=== PATIENT | female | born 1960 | race Caucasian/White ===

== ENCOUNTER → 2016-11-02 | Outpatient (CLI) | payer OTHER ==
[~2016-11-02] MED LIST: ERGO400C PO
--- NOTE | 2016-11-03 18:52 | Diagnostic Imaging Report ---
Bilateral screening mammogram The current study was also evaluated with a Computer Aided Detection (CAD) system. Indication: Screening. No current complaints stated on the questionnaire. COMPARISON: 08/12/15. FINDINGS: The breasts are composed of heterogeneously dense parenchyma which may decrease mammographic sensitivity. There is no mass, architectural distortion or suspicious cluster of calcification. Allowing for technique and positional differences, no suspicious change is seen. IMPRESSION: No significant change. ACR BI-RADS Category 2: Benign findings. Result letter will be mailed to the patient. Note: At least 10% of breast cancer is not imaged by mammography. Dictated by: Dictated on workstation # [id number]
== END ==
LOC: RAD 13:48
PROVIDERS: ATTEND Family Medicine
DX: Z12.31 Encounter for screening mammogram for malignant neoplasm of breast (principal)
CPT/HCPCS: 77067

== ENCOUNTER → 2019-01-11 | Outpatient (CLI) | payer OTHER ==
--- NOTE | 2019-01-14 08:30 | Diagnostic Imaging Report ---
INDICATION: Screening. TECHNIQUE: The current study was also evaluated with a Computer Aided Detection (CAD) system. 3D Tomographic imaging was also performed. COMPARISON: 01/10/2018, 11/02/2016, and 08/12/2015. FINDINGS: There are scattered fibroglandular densities bilaterally. There is no dominant mass, spiculated lesion, or suspicious calcifications identified. The skin, nipples, and axillae are unremarkable. IMPRESSION: Negative. ACR BI-RADS Category 1: Negative. Result letter will be mailed to the patient. Note: At least 10% of breast cancer is not imaged by mammography. Dictated by: Dictated on workstation # [id number]
== END ==
LOC: RAD 14:11
PROVIDERS: ATTEND Nurse Practitioner Family
DX: Z12.31 Encounter for screening mammogram for malignant neoplasm of breast (principal)
CPT/HCPCS: 77067

== ENCOUNTER → 2020-01-20 | Outpatient (CLI) | payer OTHER ==
--- NOTE | 2020-01-20 11:44 | Diagnostic Imaging Report ---
INDICATION: Routine screening. COMPARISON: 01/11/2019. TECHNIQUE: 2D and 3D bilateral screening mammography was performed with CAD. FINDINGS: Both breasts remain heterogeneously dense, limiting the sensitivity of mammography. The parenchymal pattern is stable. No mass or malignant appearing microcalcifications are seen. The axillae are unremarkable. IMPRESSION: No mammographic features suspicious for malignancy are identified. ACR BI-RADS Category 1: Negative. Result letter will be mailed to the patient. Note: At least 10% of breast cancer is not imaged by mammography. Dictated by: Dictated on workstation # [id number]
== END ==
LOC: RAD 07:45
PROVIDERS: ATTEND Nurse Practitioner Family
DX: Z12.31 Encounter for screening mammogram for malignant neoplasm of breast (principal)
CPT/HCPCS: 77063; 77067

== ENCOUNTER 2020-02-20 05:41 | Outpatient (RCR) | payer OTHER ==
[~2020-02-20] VITALS: Ht 167 cm; Wt 81.8 kg
[2020-02-20] MEDS ORDERED: CHOL10002 PO (12:55)
[2020-02-20] MEDS ORDERED: ALPH1TAB8 PO (12:55)
[2020-02-20] MEDS ORDERED: VIT1CAPS44 PO (12:55)
== END 2020-02-20 12:58 | disposition home or self-care (01) ==
LOC: PREOP 05:41
PROVIDERS: ATTEND Internal Medicine
DX: Z01.818 Encounter for other preprocedural examination (principal); Z12.11 Encounter for screening for malignant neoplasm of colon; Z80.0 Family history of malignant neoplasm of digestive organs

== ENCOUNTER 2020-02-28 07:21 | Day surgery (SDC) | payer OTHER ==
--- NOTE | 2020-02-14 08:02 | HISTORY AND PHYSICAL ---
DATE OF SERVICE: 02/28/2020 HISTORY OF PRESENT ILLNESS: The patient is a 59-year-old white female referred for colonoscopy for surveillance purposes due to past history of adenomatous colonic polyps. She last underwent colonoscopy in 10/2014, at which time she had one tubular adenoma removed from the cecum. She reports that since the procedure, family history has changed. Her brother was noted to have several precancerous polyps and underwent partial colectomy for volvulus with successful reversal of an initial colostomy. She is not aware of any family history for colon cancer. She denies abdominal pain and has noted no bowel habit change and denies melena or bright red blood per rectum. PAST SURGICAL HISTORY: She had tonsillectomy in the past and wisdom tooth extraction. SOCIAL HISTORY: She is employed with no smoking history and no significant alcohol intake history. FAMILY HISTORY: The patient does have a family history for colon cancer, index case being one cousin in her late 40s, she believes. Brother's history is as noted above. No other family history for colon cancer that she is aware of. REVIEW OF SYSTEMS: CONSTITUTIONAL: The patient denies any change in weight, night sweats, chills or fever. PULMONARY: She denies cough, congestion, wheezing or shortness of breath. CARDIOVASCULAR: She denies chest pain, palpitations, orthopnea, PND, pedal edema or dyspnea on exertion. GASTROINTESTINAL: As noted in the HPI. PHYSICAL EXAMINATION: GENERAL: Reveals a white female appeared to be in no acute distress. VITAL SIGNS: Blood pressure 120/82. HEENT: Unremarkable. CHEST: Clear. CARDIOVASCULAR: Revealed a regular rate and rhythm without murmur, S3 or S4. ABDOMEN: Soft, supple without mass, organomegaly or tenderness with positive bowel sounds and no bruits being noted. EXTREMITIES: Reveal no cyanosis, clubbing or edema. ASSESSMENT AND PLAN: The patient is being set up for screening colonoscopy. Positive family history for colon cancer and the past history for colon polyps. Prep instructions and Suprep kit were given and questions were answered. I thank you for the referral of this pleasant lady. Job ID: [id number] DocumentID: [id number] Dictated Date: 02/03/2020 17:08:50 [employer] Date: 02/03/2020 17:43:00 Dictated By: AYANNA SHOOK MD
[2020-02-28] VITALS (13 sets, daily range): BP systolic 115–165; BP diastolic 59–93
[~2020-02-28] VITALS: Ht 167 cm; Wt 81.8 kg
[~2020-02-28 07:21] MED LIST changes: +ALPH1TAB8 PO; +CHOL10002 PO; +VIT1CAPS44 PO
--- OUTSIDE RECORDS SUMMARY | 2020-02-28 07:26 | XMS REPORT ---
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 [facility] [employer] [facility] [employer] Address [address] [place] [address] Care Team Providers Care Marina Sales And Service Supervisor Name Role Phone BEATRIZ CHINCHILLA Unavailable Dell Shipley MD, [facility] Unavailable Unavailable Dell Shipley MD, EVA Unavailable Unavailable EPI BURGOS APRN Unavailable Unavailable Dell Shipley MD, EVA PP Unavailable Dell Shipley MD, [facility] CCM Unavailable Unavailable Unavailable EPI BURGOS APRN Unavailable Unavailable BOUCHRA SEXTON, AYANNA Gar Unavailable Unavailable BERNY YEE Unavailable Unavailable DANIEL GRIFFITH Unavailable Unavailable DANIEL GRIFFITH Unavailable Unavailable Unavailable Unavailable Unavailable Unavailable Unavailable Unavailable Unavailable Unavailable Unavailable Unavailable Allergies Allergy Reported Allergen(s) Allergy Type Date of Reaction(s) Care Facility Classificati Onset Provider on Unclassified No Known Drug Allergies DA 07-07-2011 EPI BURGOS [facility] Via (3 sources) [facility] ([id number]) Encounters Encounter Date Encounter Type Encounter Diagnosis Care Provider Facility Start: Patient encounter [facility] Di strict #1 02-25-2020 procedure of [facility] End: 02-25-2020 Start: Patient encounter AYANNA SHOOK MD [facility] Via [facility] 02-20-2020 [facility] End: 02-20-2020 Start: Patient encounter NA AUBREY guido MD [facility] 01-27-2020 procedure Start: Patient encounter EPI BURGOS APRN [facility] Vi a [facility] 01-20-2020 [facility] Start: Patient encounter EPI HOGAN [facility] 01-11-2019 [facility] ([id number]) Start: Patient encounter EPI BURGOS Not [facility]ail[facility] ([id number]) 01-10-2018 Start: Patient encounter DELL Tamayo [facility] ([id number]) 11-02-2016 procedure Patient encounter NA AUBREY Shipley MD [facility] procedure Encounter for Encounter for NA AUBREY Shipley MD [facility] gynecological gynecological ([id number]) examination (general) examination (general) (routine) without (routine) without abnormal findings abnormal findings Encounter for other AYANNA SHOOK MD [facility] Via [facility] examination ([id number]) Medical Equipment No Information Goals No Information Immunizations No Information Interventions No Information Medications No Information Payers Date Payer Normalized Payer Policy ID [employer] Plan of Treatment The data below is from unstructured sourcesNo plan of care. Problems Problem Problem Date Last Documented Episodic/Chr Provider Classificati Recorded Date onic on Genitourinar Dysuria 01-27-2020 Episodic NA NA y symptoms and ill-defined conditions (3 sources) Residual Family history of malignant 02-22-2020 Episodic AYANNA SHOOK codes; neoplasm of digestive organs unclassified (1 source) Procedures The data below is from unstructured sourcesNo known history of procedures. Results Test Name Value Interpreta Reference Facilit Date tion Range y Time not yet categorized on 2020-02-25 Provider Invalid [facility] Interpreta l tion Code [facility] ([id number]) Wound Type Invalid Hospita Interpreta l tion Code [facility] (51367) Cleaned Site with Invalid Hospita Interpreta l tion Code [facility] (45785) Bleeding Invalid Hospita Interpreta l tion Code [facility] (07265) Dressing Applied Invalid Hospita Interpreta l tion Code [facility] (16741) Other Invalid Hospita Interpreta l tion Code [facility] (62308) Procedure Verification Invalid Hospita Interpreta l tion Code [facility] (08039) Patient Tolerance Invalid Hospita Interpreta l tion Code [facility] (23514) Abdomen Invalid Hospita Interpreta l tion Code [facility] (07701) Abdominal Pain Invalid [facility]ospita Interpreta l tion Code [facility] (17902) Advanced Directives Invalid Hospita Interpreta l tion Code [facility] (28119) Airway Invalid Hospita Interpreta l tion Code [facility] (60508) All Home Meds Invalid Hospita Interpreta l tion Code [facility] (02793) Allergies Invalid Hospita Interpreta l tion Code [facility] (93063) Apical Invalid Hospita Interpreta l tion Code [facility] (67367) Arrival Date and Time Invalid Hospita Interpreta l tion Code [facility] (39428) Associated Abd s/s Invalid Hospita Interpreta l tion Code [facility] (51706) AVPU Invalid Hospita Interpreta l tion Code [facility] (53236) Blood Pressure Invalid Hospita Interpreta l tion Code [facility] (08032) Body Mass Index Invalid Hospita Interpreta l tion Code [facility] (99380) Body Part JSON Invalid Hospita Interpreta l tion Code [facility] (27037) Bowel sounds Invalid Hospita Interpreta l tion Code [facility] (82824) Breathing Invalid Hospita Interpreta l tion Code [facility] (61274) Windows Architect Invalid Hospita Interpreta l tion Code [facility] (15237) Chief Complaint (Patient's Own Words) Invalid [facility]ospita Interpreta l tion Code [facility] (03382) Circulation Invalid Hospita Interpreta l tion Code [facility] (62481) Code Status Invalid Hospita Interpreta l tion Code [facility] (01738) Communication Barrier Invalid Hospita Interpreta l tion Code [facility] (87163) Cough Invalid Hospita Interpreta l tion Code [facility] (21321) Discharge Instructions Reviewed with Invalid H ospita patient/family/guardian Interpreta l tion Code [facility] (91162) Discharge Mode Invalid Hospita Interpreta l tion Code [facility] (43653) Discharged to Invalid Hospita Interpreta l tion Code [facility] (23411) Distal Circ Invalid Hospita Interpreta l tion Code [facility] (80611) Do You Use A Walker/Cane/Wheelchair Invalid Ho spita Interpreta l tion Code [facility] (81938) Do You Use Alcohol Invalid Hospita Interpreta l tion Code [facility] (85291) Do You Use Recreational Drugs Invalid Hospita Interpreta l tion Code [facility] (81870) Dressing Applied Invalid Hospita Interpreta l tion Code [facility] (61954) Edema Invalid Hospita Interpreta l tion Code [facility] (96952) Emergency Severity Index Invalid Hospita Interpreta l tion Code [facility] (43744) Exam Room # Invalid Hospita Interpreta l tion Code [facility] (16121) Extremities Invalid Hospita Interpreta l tion Code [facility] (12165) Eyes Open Invalid Hospita Interpreta l tion Code [facility] (30652) Fall Risk Invalid Hospita Interpreta l tion Code [facility] (67409) Fall Risk Band On Invalid Hospita Interpreta l tion Code [facility] (43445) From Triage Invalid Hospita Interpreta l tion Code [facility] (19269) Further Education Needed Invalid Hospita Interpreta l tion Code [facility] (65771) Generalized Skin Color Invalid Hospita Interpreta l tion Code [facility] (72545) Glascow Coma Scale Score Invalid Hospita Interpreta l tion Code [facility] (63477) Have you experienced any of the following in Invalid Hospita the last 2-14 days? Interpreta l tion Code [facility] (98819) Have you traveled outside the [facility] Invalid [facility]ospita in the last 30 days? Interpreta l tion Code [facility] (36157) Height CM Invalid Hospita Interpreta l tion Code [facility] (84824) Height IN Invalid Hospita Interpreta l tion Code [facility] (93452) Immunization History Invalid Hospita Interpreta l tion Code [facility] (50711) Web Architect Needed Invalid Hospita Interpreta l tion Code [facility] (94221) IV removed Invalid Hospita Interpreta l tion Code [facility] (93363) Jugular Vein Distention Invalid Hospita Interpreta l tion Code [facility] (82762) Level of Consciousness Invalid Hospita Interpreta l tion Code [facility] (04490) Location of Pain Invalid Hospita Interpreta l tion Code [facility] (39746) Lung Sounds (Left) Invalid Hospita Interpreta l tion Code [facility] (71691) Lung Sounds (Right) Invalid Hospita Interpreta l tion Code [facility] (75997) Mechanism used to weigh patient Invalid Hospit a Interpreta l tion Code [facility] (31085) Mode of Arrival Invalid Hospita Interpreta l tion Code [facility] (62571) Most Recent Vitals Invalid Hospita Interpreta l tion Code [facility] (67799) Motor Response Invalid Hospita Interpreta l tion Code [facility] (38434) Mucous Membranes Invalid [facility]ospita Interpreta l tion Code [facility] (54294) Neurological Signs/Symptoms (Select all that Invalid Hospita apply) Interpreta l tion Code [facility] (52178) Notes Invalid Hospita Interpreta l tion Code [facility] (61572) Onset Date/Time of Injury Invalid Hospita Interpreta l tion Code [facility] (72692) Oxygen Saturation Invalid Hospita Interpreta l tion Code [facility] (08578) Oxygen Source. Invalid Hospita Interpreta l tion Code [facility] (97278) Pain Scale Invalid Hospita Interpreta l tion Code [facility] (21303) Past Medical History (Unique) Invalid [facility]ospita Interpreta l tion Code [facility] (57481) Past Medical History Obtained From Invalid Hos nik Interpreta l tion Code [facility] (29805) Patient Behavior (Select all that apply) Invalid [facility]ita Interpreta l tion Code [facility] (65005) Patient Orientation (Select all that apply) Invalid [facility]ita Interpreta l tion Code [facility] (04039) Pedal Pulses Invalid Hospita Interpreta l tion Code [facility] (22108) Performed At Invalid Hospita Interpreta l tion Code [facility] (29676) Invalid Hospita Interpreta l tion Code [facility] (73346) Primary Care Physician Invalid Hospita Interpreta l tion Code [facility] (68854) Pulse Invalid Hospita Interpreta l tion Code [facility] (57011) RA Invalid Hospita Interpreta l tion Code [facility] (87189) Radial Pulses Invalid Hospita Interpreta l tion Code [facility] (75287) Respiratory Rate Invalid Hospita Interpreta l tion Code [facility] (43577) Responds To Invalid Hospita Interpreta l tion Code [facility] (64655) Sensation Invalid Hospita Interpreta l tion Code [facility] (44882) Sensory Function (Select all that apply) Invalid Hospita Interpreta l tion Code [facility] (20086) Skin Invalid Hospita Interpreta l tion Code [facility] (89817) Skin Color Invalid Hospita Interpreta l tion Code [facility] (99081) Skin Turgor Invalid Hospita Interpreta l tion Code [facility] (44936) Smoking Status Invalid Hospita Interpreta l tion Code [facility] (87564) Speech Pattern (Neuro) (Select all that Invalid Hospita apply) Interpreta l tion Code [facility] (52164) Surgical History Invalid Hospita Interpreta l tion Code [facility] (20881) Swallowing Without Difficulty Invalid [facility]ospita Interpreta l tion Code [facility] (79408) Temperature C Invalid Hospita Interpreta l tion Code [facility] (66758) Temperature F Invalid Hospita Interpreta l tion Code [facility] (18717) Temperature obtained by Invalid Hospita Interpreta l tion Code [facility] (74704) Tender to Palpation Invalid Hospita Interpreta l tion Code [facility] (32382) Tetanus Invalid Hospita Interpreta l tion Code [facility] (37273) To Exam Room Invalid Hospita Interpreta l tion Code [facility] (59112) Trauma Activation determination Invalid Hospit a Interpreta l tion Code [facility] (06947) Triage Interventions Invalid Hospita Interpreta l tion Code [facility] (59061) Verbal Response Invalid Hospita Interpreta l tion Code [facility] (51377) Verbalized understanding of DC instructions Invalid Hospita by patient/family/guardian Interpreta l tion Code [facility] (79325) Weight KG Invalid Hospita Interpreta l tion Code [facility] (32518) Weight LB Invalid Hospita Interpreta l tion Code [facility] (28712) Within Normal Limits Invalid Hospita Interpreta l tion Code [facility] (23462) Social History No Information Vital Signs The data below is from unstructured sources Vital Response Date/Time Temperature (Fahrenheit) 97.1 degree s F (97.6 - 99.5) Temperature (Calculated Celsius) 36. 03156 degrees C (36.4 - 37.5) Temperature Source Tympanic Pulse Rate (adult) 62 bpm (60 - 90) Respiratory Rate 16 bpm (12 - 24) O2 Sat by Pulse Oximetry 98 % (88 - 100) Blood Pressure 138/82 mm Hg Pain Pain Intensity 0 Height (Feet) 5 feet Height (Inches) 6.00 inches Height (Calculated Centimeters) 167. 274031 cm Weight (Pounds) 180 pounds Weight (Calculated Grams) 38714.627 gm Weight (Calculated Kilograms) 81.646 627 kilograms Calculated BMI 29.05 Functional Status The data below is from unstructured sourcesNo functional status results.No Functional Status dataNo Functional Status dataNo Functional Status dataNo Functional Status data Mental Status No Information Advance Directives No Advance Directive data Directive Response Recor ded Date/Time Advance Directives No 8:05am Health Care Power of Manager Lab No 11/04/14 8:05am Organ Donor No 11/04/14 8:05am Resuscitation Status Full Code 11/04/14 8:05am Discharge Instructions No hospital discharge instructions. Summary Purpose Interface ExchangeInterface Exchange Family History Diagnosis Age At Onset Osteoporosis Unknown Hyperlipidemia Unknown Diagnosis Age At Onset Dementia Unknown Diagnosis Age At Onset Breast cancer Unknown Myocardial infarction Unknown Cancer Unknown Assessments Condition Codes Effectiv e Dates Encounter for gynecological examination (general) (routine) without abnormal findings ICD-10: Z01.419 ICD-9: V72.31 01/16/2018 Right upper quadrant pain ICD-10: R1 0.11 ICD-9: 789.01 01/12/2016 Other obesity due to excess calories ICD-10: E66.09 ICD-9: 278.00 11/05/2015 Essential (primary) hypertension ICD -10: I10 ICD-9: 401.9 11/05/2015 Allergic rhinitis, unspecified ICD-1 0: J30.9 ICD-9: 477.9 10/05/2015 Cough ICD-10: R05 ICD-9: 786.2 10/05/2015 Acute bronchitis, unspecified ICD-10 : J20.9 ICD-9: 466.0 10/05/2015 Acute maxillary sinusitis, unspecified ICD-10: J01.00 ICD-9: 461.0 08/26/2015 Gastro-esophageal reflux disease without esophagitis ICD-10: K21.9 ICD-9: 530.81 08/24/2015 Encounter for general adult medical exam ination without abnormal findings ICD-10: Z00.00 ICD-9: V70.0 07/14/2015 Condition Codes Effectiv e Dates Essential (primary) hypertension ICD -10: I10 ICD-9: 401.9 01/22/2019 Vitamin D deficiency, unspecified IC D-10: E55.9 ICD-9: 268.9 01/22/2019 Encounter for general adult medical exam ination without abnormal findings ICD-10: Z00.00 ICD-9: V70.0 01/22/2019 Encounter for screening mammogram for ma lignant neoplasm of breast ICD-10: Z12.31 ICD-9: V76.10 01/14/2019 Encounter for gynecological examination (general) (routine) without abnormal findings ICD-10: Z01.419 ICD-9: V72.31 01/16/2018 Right upper quadrant pain ICD-10: R1 0.11 ICD-9: 789.01 01/12/2016 Other obesity due to excess calories ICD-10: E66.09 ICD-9: 278.00 11/05/2015 Allergic rhinitis, unspecified ICD-1 0: J30.9 ICD-9: 477.9 10/05/2015 Cough ICD-10: R05 ICD-9: 786.2 10/05/2015 Acute bronchitis, unspecified ICD-10 : J20.9 ICD-9: 466.0 10/05/2015 Acute maxillary sinusitis, unspecified ICD-10: J01.00 ICD-9: 461.0 08/26/2015 Gastro-esophageal reflux disease without esophagitis ICD-10: K21.9 ICD-9: 530.81 08/24/2015 Chief Complaint Reason For Visit Effective Dates Notes well woman exam (40-65 years) 01/16/2018 well woman exam (40-65 years) 11/22/2016 blood pressure followup 01/12/2016 blood pressure followup 11/05/2015 cough 10/05/2015 sinus congestion 08/26/2015 gastroesophageal reflux 08/24/2015 well woman exam (40-65 years) 07/14/2015 Review of System System Result Effective Dates Constitutional No recent illness 01/16/2018 Constitutional No chills 01/16/2018 Constitutional No fever 01/16/2018 Eyes No eye discharge Eyes No eye erythema 09/2017 Ears/Nose/Throat/Neck No headache 01/16/2018 Ears/Nose/Throat/Neck No nasal discharge 01/16/2018 Ears/Nose/Throat/Neck No sore throat 01/16/2018 Cardiovascular No chest pain/pressure 01/16/2018 Cardiovascular No dyspnea 01/16/2018 Cardiovascular No fatigue 01/16/2018 Cardiovascular No syncope 01/16/2018 Respiratory No chest congestion 01/16/2018 Respiratory No chest tightness 01/16/2018 Respiratory No cough 09/2017 Respiratory No dyspnea on exertion 01/16/2018 Respiratory No dyspnea 0 01/16/2018 Gastrointestinal No abdominal pain 01/16/2018 Gastrointestinal No constipation 01/16/2018 Gastrointestinal No diarrhea 01/16/2018 Genitourinary/Nephrology No breast c omplaint 01/16/2018 Genitourinary/Nephrology No dysuria 01/16/2018 Genitourinary/Nephrology No genital lesion 01/16/2018 Genitourinary/Nephrology No hematuria 01/16/2018 Genitourinary/Nephrology No menopaus al symptoms 01/16/2018 Genitourinary/Nephrology No menstrua l irregularity 01/16/2018 Genitourinary/Nephrology No Pap smea r abnormality 01/16/2018 Genitourinary/Nephrology No pelvic pain 01/16/2018 Genitourinary/Nephrology No urinary incontinence 01/16/2018 Genitourinary/Nephrology No vaginal discharge 01/16/2018 Musculoskeletal No stiffness 01/16/2018 Musculoskeletal No swelling 01/16/2018 Musculoskeletal No muscle weakness 01/16/2018 Musculoskeletal No myalgias 01/16/2018 Dermatologic No rash 09/2017 Neurologic No dizziness 01/16/2018 Neurologic No headache 0 01/16/2018 Neurologic No neck pain 01/16/2018 Neurologic No syncope Psychiatric No anxiety 0 01/16/2018 Psychiatric No depression 01/16/2018 Constitutional No recent illness 11/22/2016 Constitutional No chills 11/22/2016 Constitutional No fever 11/22/2016 Eyes No eye discharge Eyes No eye erythema 03/2017 Ears/Nose/Throat/Neck No headache 11/22/2016 Ears/Nose/Throat/Neck No nasal discharge 11/22/2016 Ears/Nose/Throat/Neck No sore throat 11/22/2016 Cardiovascular No chest pain/pressure 11/22/2016 Cardiovascular No dyspnea 11/22/2016 Cardiovascular No fatigue 11/22/2016 Cardiovascular No syncope 11/22/2016 Respiratory No chest congestion 11/22/2016 Respiratory No chest tightness 11/22/2016 Respiratory No cough 03/2017 Respiratory No dyspnea on exertion 11/22/2016 Respiratory No dyspnea 0 11/22/2016 Gastrointestinal No abdominal pain 11/22/2016 Gastrointestinal No constipation 11/22/2016 Gastrointestinal No diarrhea 11/22/2016 Genitourinary/Nephrology No breast c omplaint 11/22/2016 Genitourinary/Nephrology No dysuria 11/22/2016 Genitourinary/Nephrology No genital lesion 11/22/2016 Genitourinary/Nephrology No hematuria 11/22/2016 Genitourinary/Nephrology No menopaus al symptoms 11/22/2016 Genitourinary/Nephrology No menstrua l irregularity 11/22/2016 Genitourinary/Nephrology No Pap smea r abnormality 11/22/2016 Genitourinary/Nephrology No pelvic pain 11/22/2016 Genitourinary/Nephrology No urinary incontinence 11/22/2016 Genitourinary/Nephrology No vaginal discharge 11/22/2016 Musculoskeletal No stiffness 11/22/2016 Musculoskeletal No swelling 11/22/2016 Musculoskeletal No muscle weakness 11/22/2016 Musculoskeletal No myalgias 11/22/2016 Dermatologic No rash 03/2017 Neurologic No dizziness 11/22/2016 Neurologic No headache 0 11/22/2016 Neurologic No neck pain 11/22/2016 Neurologic No syncope Psychiatric No anxiety 0 11/22/2016 Psychiatric No depression 11/22/2016 Constitutional No recent illness 01/12/2016 Constitutional No anorexia 01/12/2016 Constitutional No night sweats 01/12/2016 Constitutional No chills 01/12/2016 Constitutional No diaphoresis 01/12/2016 Constitutional No fatigue 01/12/2016 Constitutional No fever 01/12/2016 Constitutional No insomnia 01/12/2016 Constitutional No malaise 01/12/2016 Eyes No vision change Ears/Nose/Throat/Neck No dizziness 01/12/2016 Ears/Nose/Throat/Neck No headache 01/12/2016 Cardiovascular No chest pain/pressure 01/12/2016 Cardiovascular No dyspnea 01/12/2016 Respiratory No productive sputum 01/12/2016 Musculoskeletal No joint complaint 01/12/2016 Dermatologic No rash Constitutional No recent illness 11/05/2015 Constitutional No anorexia 11/05/2015 Constitutional No night sweats 11/05/2015 Constitutional No chills 11/05/2015 Constitutional No diaphoresis 11/05/2015 Constitutional No fatigue 11/05/2015 Constitutional No fever 11/05/2015 Constitutional No insomnia 11/05/2015 Constitutional No malaise 11/05/2015 Constitutional weight loss 11/05/2015 Constitutional No weight gain 11/05/2015 Ears/Nose/Throat/Neck No dizziness 11/05/2015 Ears/Nose/Throat/Neck No headache 11/05/2015 Eyes No vision change Cardiovascular No chest pain/pressure 11/05/2015 Cardiovascular No dyspnea 11/05/2015 Gastrointestinal gastroesophageal reflux 11/05/2015 Respiratory No productive sputum 11/05/2015 Respiratory cough 2015 Genitourinary/Nephrology No dysuria 11/05/2015 Musculoskeletal No joint complaint 11/05/2015 Dermatologic No rash Constitutional recent illness 10/05/2015 Constitutional No night sweats 10/05/2015 Constitutional No anorexia 10/05/2015 Constitutional chills Constitutional No fatigue 10/05/2015 Constitutional diaphoresis 10/05/2015 Constitutional No fever 10/05/2015 Constitutional No insomnia 10/05/2015 Constitutional No malaise 10/05/2015 Constitutional No weight loss 10/05/2015 Constitutional No weight gain 10/05/2015 Eyes No eye discharge Eyes No eye erythema Ears/Nose/Throat/Neck No dizziness 10/05/2015 Ears/Nose/Throat/Neck headache 10/05/2015 Ears/Nose/Throat/Neck nasal allergies 10/05/2015 Ears/Nose/Throat/Neck nasal discharge 10/05/2015 Ears/Nose/Throat/Neck No otalgia 10/05/2015 Ears/Nose/Throat/Neck sinus congestion 10/05/2015 Ears/Nose/Throat/Neck sore throat 10/05/2015 Cardiovascular No chest pain/pressure 10/05/2015 Respiratory cough 2015 Respiratory No productive sputum 10/05/2015 Gastrointestinal No abdominal pain 10/05/2015 Gastrointestinal No constipation 10/05/2015 Gastrointestinal No diarrhea 10/05/2015 Musculoskeletal No joint complaint 10/05/2015 Genitourinary/Nephrology No breast c omplaint 10/05/2015 Dermatologic No rash Neurologic No alteration of consciousness 10/05/2015 Constitutional fatigue 0 08/24/2015 Constitutional recent illness 08/24/2015 Ears/Nose/Throat/Neck facial pain 08/24/2015 Ears/Nose/Throat/Neck headache 08/24/2015 Ears/Nose/Throat/Neck sinusitis 08/24/2015 Ears/Nose/Throat/Neck sore throat 08/24/2015 Cardiovascular No chest pain/pressure 08/24/2015 Cardiovascular No dyspnea 08/24/2015 Cardiovascular No edema 08/24/2015 Cardiovascular fatigue 0 08/24/2015 Cardiovascular No syncope 08/24/2015 Respiratory No chest tightness 08/24/2015 Respiratory No cigarette smoking 08/24/2015 Respiratory cough 2015 Respiratory No dyspnea 0 08/24/2015 Respiratory No wheezing 08/24/2015 Gastrointestinal No constipation 08/24/2015 Gastrointestinal No diarrhea 08/24/2015 Gastrointestinal dyspepsia 08/24/2015 Gastrointestinal No nausea 08/24/2015 Psychiatric No anxiety 0 08/24/2015 Psychiatric No depression 08/24/2015 Constitutional No chills 07/14/2015 Constitutional No fever 07/14/2015 Constitutional No recent illness 07/14/2015 Eyes No eye discharge Eyes No eye erythema Ears/Nose/Throat/Neck No headache 07/14/2015 Ears/Nose/Throat/Neck No nasal discharge 07/14/2015 Ears/Nose/Throat/Neck No sore throat 07/14/2015 Cardiovascular No chest pain/pressure 07/14/2015 Cardiovascular No dyspnea 07/14/2015 Cardiovascular No fatigue 07/14/2015 Cardiovascular No syncope 07/14/2015 Respiratory No chest congestion 07/14/2015 Respiratory No chest tightness 07/14/2015 Respiratory No cough Respiratory No dyspnea 1 Respiratory No dyspnea on exertion 07/14/2015 Gastrointestinal No abdominal pain 07/14/2015 Gastrointestinal No constipation 07/14/2015 Gastrointestinal No diarrhea 07/14/2015 Genitourinary/Nephrology No breast c omplaint 07/14/2015 Genitourinary/Nephrology No dysuria 07/14/2015 Genitourinary/Nephrology No genital lesion 07/14/2015 Genitourinary/Nephrology No hematuria 07/14/2015 Genitourinary/Nephrology No menopaus al symptoms 07/14/2015 Genitourinary/Nephrology No menstrua l irregularity 07/14/2015 Genitourinary/Nephrology No Pap smea r abnormality 07/14/2015 Genitourinary/Nephrology No pelvic pain 07/14/2015 Genitourinary/Nephrology No urinary incontinence 07/14/2015 Genitourinary/Nephrology No vaginal discharge 07/14/2015 Dermatologic No rash Psychiatric No anxiety 1 Psychiatric No depression 07/14/2015 Neurologic No dizziness 07/14/2015 Neurologic No headache 1 Neurologic No neck pain 07/14/2015 Neurologic No syncope Musculoskeletal No stiffness 07/14/2015 Musculoskeletal No swelling 07/14/2015 Musculoskeletal No muscle weakness 07/14/2015 Musculoskeletal No myalgias 07/14/2015 Physical Exam Exam Name System Name It em Name Status Result Effective Dates Notes Full Exam - Genitourinary/Female Con stitutional general appearance Overall: well nourished 01/16/2018 None Full Exam - Genitourinary/Female Con stitutional general appearance Overall: well developed 01/16/2018 None Full Exam - Genitourinary/Female Con stitutional general appearance Overall: in no acute distress 01/16/2018 None Full Exam - Genitourinary/Female Eyes conjunctiva/eyelids Overall: conjunctiva clear 01/16/2018 None Full Exam - Genitourinary/Female Eyes pupils and irises Overall: pupils equal, round, reactive to light and accomodation 01/16/2018 None Full Exam - Genitourinary/Female Ear s/Nose/Throat otoscopic exam Overall: external auditory canals clear 01/16/2018 None Full Exam - Genitourinary/Female Ear s/Nose/Throat otoscopic exam Overall: tympanic membranes clear 01/16/2018 None Full Exam - Genitourinary/Female Ear s/Nose/Throat oral cavity/pharynx/larynx Overall: oral mucosa clear 01/16/2018 None Full Exam - Genitourinary/Female Neck thyroid Overall: normal size 01/16/2018 None Full Exam - Genitourinary/Female Neck thyroid Overall: normal consistency 01/16/2018 None Full Exam - Genitourinary/Female Neck inspection of neck Overall: normal size 01/16/2018 None Full Exam - Genitourinary/Female Res piratory auscultation Overall: br eath sounds clear bilaterally 01/16/2018 None Full Exam - Genitourinary/Female Res piratory respiratory effort/rhythm Overall: no retractions 01/16/2018 None Full Exam - Genitourinary/Female Res piratory respiratory effort/rhythm Overall: normal rate 01/16/2018 None Full Exam - Genitourinary/Female Car diovascular auscultation of heart Overall: regular rate 01/16/2018 None Full Exam - Genitourinary/Female Car diovascular auscultation of heart Overall: normal heart sounds 01/16/2018 None Full Exam - Genitourinary/Female Car diovascular auscultation of heart Overall: no murmurs 01/16/2018 None Full Exam - Genitourinary/Female Maya st/Breast breast inspection and palpation Overall: normal chest shape 01/16/2018 None Full Exam - Genitourinary/Female Abdomen abdominal exam Overall: non tender, non distended 01/16/2018 None Full Exam - Genitourinary/Female Abdomen abdominal exam Overall: normal bowel sounds 01/16/2018 None Full Exam - Genitourinary/Female Abdomen abdominal exam Overall: no mass lesions 01/16/2018 None Full Exam - Genitourinary/Female Gen itourinary breast inspection & palpation Overall: breasts symmetric and without lesions 01/16/2018 None Full Exam - Genitourinary/Female Gen itourinary breast inspection & palpation Overall: breasts non-tender, no mass lesions 01/16/2018 None Full Exam - Genitourinary/Female Gen itourinary breast inspection & palpation Overall: no nipple discharge 01/16/2018 None Full Exam - Genitourinary/Female Gen itourinary external genitalia Overall: normal hair distribution 01/16/2018 None Full Exam - Genitourinary/Female Gen itourinary external genitalia Overall: no discharge 01/16/2018 None Full Exam - Genitourinary/Female Gen itourinary external genitalia Overall: no lesions 01/16/2018 None Full Exam - Genitourinary/Female Gen itourinary bladder Overall: no tend erness 01/16/2018 None Full Exam - Genitourinary/Female Gen itourinary bladder Overall: no mass lesions 01/16/2018 None Full Exam - Genitourinary/Female Gen itourinary vagina Overall: no disch arge 01/16/2018 None Full Exam - Genitourinary/Female Gen itourinary vagina Overall: no lesio ns 01/16/2018 None Full Exam - Genitourinary/Female Gen itourinary vagina Overall: normal t one 01/16/2018 None Full Exam - Genitourinary/Female Gen itourinary vagina Overall: normal p elvic support 01/16/2018 None Full Exam - Genitourinary/Female Gen itourinary vagina Introitus: normal appearance 01/16/2018 None Full Exam - Genitourinary/Female Gen itourinary cervix Inspection: mesfin l os 01/16/2018 None Full Exam - Genitourinary/Female Gen itourinary uterus Overall: normal s ize 01/16/2018 None Full Exam - Genitourinary/Female Gen itourinary uterus Overall: normal c ontour 01/16/2018 None Full Exam - Genitourinary/Female Gen itourinary uterus Overall: normal s hape 01/16/2018 None Full Exam - Genitourinary/Female Gen itourinary uterus Overall: normal m obility 01/16/2018 None Full Exam - Genitourinary/Female Gen itourinary uterus Overall: non tend er 01/16/2018 None Full Exam - Genitourinary/Female Gen itourinary uterus Overall: no mass 01/16/2018 None Full Exam - Genitourinary/Female Lymphatic inspection and palpation of nodes Overall: anterior cervical chain benign 01/16/2018 None Full Exam - Genitourinary/Female Lymphatic inspection and palpation of nodes Overall: posterior cervical chain benign 01/16/2018 None Full Exam - Genitourinary/Female Mus culoskeletal head and neck Overall: h ead atraumatic 01/16/2018 None Full Exam - Genitourinary/Female Integumen t inspection and palpation of skin Overall: no rash, lesions 01/16/2018 None Full Exam - Genitourinary/Female Integumen t inspection and palpation of skin Overall: no induration, no tenderness 01/16/2018 None Full Exam - Genitourinary/Female Neurologi c mood and affect Overall: normal mood 01/16/2018 None Full Exam - Genitourinary/Female Neurologi c mood and affect Overall: normal affect 01/16/2018 None Full Exam - Genitourinary/Female Psy chiatric orientation/consciousness Overall: oriented to person, place and time 01/16/2018 None Full Exam - Genitourinary/Female Con stitutional general appearance Overall: well nourished 11/22/2016 None Full Exam - Genitourinary/Female Con stitutional general appearance Overall: well developed 11/22/2016 None Full Exam - Genitourinary/Female Con stitutional general appearance Overall: in no acute distress 11/22/2016 None Full Exam - Genitourinary/Female Eyes conjunctiva/eyelids Overall: conjunctiva clear 11/22/2016 None Full Exam - Genitourinary/Female Eyes pupils and irises Overall: pupils equal, round, reactive to light and accomodation 11/22/2016 None Full Exam - Genitourinary/Female Ear s/Nose/Throat otoscopic exam Overall: external auditory canals clear 11/22/2016 None Full Exam - Genitourinary/Female Ear s/Nose/Throat otoscopic exam Overall: tympanic membranes clear 11/22/2016 None Full Exam - Genitourinary/Female Ear s/Nose/Throat oral cavity/pharynx/larynx Overall: oral mucosa clear 11/22/2016 None Full Exam - Genitourinary/Female Neck thyroid Overall: normal size 11/22/2016 None Full Exam - Genitourinary/Female Neck thyroid Overall: normal consistency 11/22/2016 None Full Exam - Genitourinary/Female Neck inspection of neck Overall: normal size 11/22/2016 None Full Exam - Genitourinary/Female Res piratory auscultation Overall: br eath sounds clear bilaterally 11/22/2016 None Full Exam - Genitourinary/Female Res piratory respiratory effort/rhythm Overall: no retractions 11/22/2016 None Full Exam - Genitourinary/Female Res piratory respiratory effort/rhythm Overall: normal rate 11/22/2016 None Full Exam - Genitourinary/Female Car diovascular auscultation of heart Overall: regular rate 11/22/2016 None Full Exam - Genitourinary/Female Car diovascular auscultation of heart Overall: normal heart sounds 11/22/2016 None Full Exam - Genitourinary/Female Car diovascular auscultation of heart Overall: no murmurs 11/22/2016 None Full Exam - Genitourinary/Female Maya st/Breast breast inspection and palpation Overall: normal chest shape 11/22/2016 None Full Exam - Genitourinary/Female Abdomen abdominal exam Overall: non tender, non distended 11/22/2016 None Full Exam - Genitourinary/Female Abdomen abdominal exam Overall: normal bowel sounds 11/22/2016 None Full Exam - Genitourinary/Female Abdomen abdominal exam Overall: no mass lesions 11/22/2016 None Full Exam - Genitourinary/Female Gen itourinary breast inspection & palpation Overall: breasts symmetric and without lesions 11/22/2016 None Full Exam - Genitourinary/Female Gen itourinary breast inspection & palpation Overall: breasts non-tender, no mass lesions 11/22/2016 None Full Exam - Genitourinary/Female Gen itourinary breast inspection & palpation Overall: no nipple discharge 11/22/2016 None Full Exam - Genitourinary/Female Gen itourinary external genitalia Overall: normal hair distribution 11/22/2016 None Full Exam - Genitourinary/Female Gen itourinary external genitalia Overall: no discharge 11/22/2016 None Full Exam - Genitourinary/Female Gen itourinary external genitalia Overall: no lesions 11/22/2016 None Full Exam - Genitourinary/Female Gen itourinary bladder Overall: no tend erness 11/22/2016 None Full Exam - Genitourinary/Female Gen itourinary bladder Overall: no mass lesions 11/22/2016 None Full Exam - Genitourinary/Female Gen itourinary vagina Overall: no disch arge 11/22/2016 None Full Exam - Genitourinary/Female Gen itourinary vagina Overall: no lesio ns 11/22/2016 None Full Exam - Genitourinary/Female Gen itourinary vagina Overall: normal t one 11/22/2016 None Full Exam - Genitourinary/Female Gen itourinary vagina Overall: normal p elvic support 11/22/2016 None Full Exam - Genitourinary/Female Gen itourinary vagina Introitus: normal appearance 11/22/2016 None Full Exam - Genitourinary/Female Gen itourinary cervix Inspection: mesfin l os 11/22/2016 None Full Exam - Genitourinary/Female Gen itourinary uterus Overall: normal s ize 11/22/2016 None Full Exam - Genitourinary/Female Gen itourinary uterus Overall: normal c ontour 11/22/2016 None Full Exam - Genitourinary/Female Gen itourinary uterus Overall: normal s hape 11/22/2016 None Full Exam - Genitourinary/Female Gen itourinary uterus Overall: normal m obility 11/22/2016 None Full Exam - Genitourinary/Female Gen itourinary uterus Overall: non tend er 11/22/2016 None Full Exam - Genitourinary/Female Gen itourinary uterus Overall: no mass 11/22/2016 None Full Exam - Genitourinary/Female Lymphatic inspection and palpation of nodes Overall: anterior cervical chain benign 11/22/2016 None Full Exam - Genitourinary/Female Lymphatic inspection and palpation of nodes Overall: posterior cervical chain benign 11/22/2016 None Full Exam - Genitourinary/Female Mus culoskeletal head and neck Overall: h ead atraumatic 11/22/2016 None Full Exam - Genitourinary/Female Integumen t inspection and palpation of skin Overall: no rash, lesions 11/22/2016 None Full Exam - Genitourinary/Female Integumen t inspection and palpation of skin Overall: no induration, no tenderness 11/22/2016 None Full Exam - Genitourinary/Female Neurologi c mood and affect Overall: normal mood 11/22/2016 None Full Exam - Genitourinary/Female Neurologi c mood and affect Overall: normal affect 11/22/2016 None Full Exam - Genitourinary/Female Psy chiatric orientation/consciousness Overall: oriented to person, place and time 11/22/2016 None Full Exam - General 1994 Constitutional general appearance Overall: well developed 01/12/2016 None Full Exam - General 1994 Constitutional general appearance Overall: in no acute distress 01/12/2016 None Full Exam - General 1994 Constitutional general appearance Overall: well nourished 01/12/2016 None Full Exam - General 1994 Ears/Nose/Throat otoscopic exam Overall: external auditory canals clear 01/12/2016 None Full Exam - General 1994 Ears/Nose/Throat otoscopic exam Tympanic membrane: tympanosclerosis 01/12/2016 None Full Exam - General 1994 Respiratory auscultation Overall: breath sounds clear bilaterally 01/12/2016 None Full Exam - General 1994 Respiratory respiratory effort/rhythm Overall: no retractions 01/12/2016 None Full Exam - General 1994 Respiratory respiratory effort/rhythm Overall: normal rate 01/12/2016 None Full Exam - General 1994 Cardiovascular auscultation of heart Overall: regular rate 01/12/2016 None Full Exam - General 1994 Cardiovascular auscultation of heart Overall: normal heart sounds 01/12/2016 None Full Exam - General 1994 Cardiovascular auscultation of heart Overall: no murmurs 01/12/2016 None Full Exam - General 1994 Psychiatric orientation/consciousness Overall: oriented to person, place and time 01/12/2016 None Full Exam - General 1994 Constitutional general appearance Development: appears stated age 0601/12/2016 None Full Exam - General 1994 Constitutional general appearance Development: well developed 01/12/2016 None Full Exam - General 1994 Constitutional general appearance Hygiene/Attention to Grooming: good hygiene 01/12/2016 None Full Exam - General 1994 Eyes conjunctiva/eyelids Overall: conjunctiva clear 01/12/2016 None Full Exam - General 1994 Eyes conjunctiva/eyelids Overall: cornea clear 01/12/2016 None Full Exam - General 1994 Eyes conjunctiva/eyelids Overall: eyelids normal 01/12/2016 None Full Exam - General 1994 Eyes pupils and irises Overall: pupils equal, round, reactive to light and accomodation 01/12/2016 None Full Exam - General 1994 Ears/Nose/Throat otoscopic exam Overall: tympanic membranes clear 01/12/2016 None Full Exam - General 1994 Ears/Nose/Throat lips/teeth/gingiva Overall: benign lips 01/12/2016 None Full Exam - General 1994 Ears/Nose/Throat lips/teeth/gingiva Overall: normal dentition 01/12/2016 None Full Exam - General 1994 Ears/Nose/Throat oral cavity/pharynx/larynx Overall: hypopharynx benign 01/12/2016 None Full Exam - General 1994 Ears/Nose/Throat oral cavity/pharynx/larynx Overall: no masses 01/12/2016 None Full Exam - General 1994 Ears/Nose/Throat oral cavity/pharynx/larynx Overall: oral mucosa clear 01/12/2016 None Full Exam - General 1994 Ears/Nose/Throat oral cavity/pharynx/larynx Overall: oropharyngeal mucosa clear 01/12/2016 None Full Exam - General 1994 Cardiovascular extremities Overall: no clubbing 01/12/2016 None Full Exam - General 1994 Integument inspection of skin Overall: few scattered moles, no gross abnormalities 01/12/2016 None Full Exam - General 1994 Neurologic deep tendon reflexes Overall: deep tendon reflexes intact 01/12/2016 None Full Exam - General 1994 Neurologic cranial nerves Overall: crainial nerves 2 - 12 grossly intact 01/12/2016 None Full Exam - General 1994 Psychiatric mood and affect Overall: normal mood and affect 01/12/2016 None Full Exam - General 1994 Abdomen abdominal exam Overall: normal bowel sounds 01/12/2016 None Full Exam - General 1994 Abdomen abdominal exam Overall: no tenderness 01/12/2016 None Full Exam - General 1994 Constitutional general appearance Overall: well developed 11/05/2015 None Full Exam - General 1994 Constitutional general appearance Overall: in no acute distress 11/05/2015 None Full Exam - General 1994 Constitutional general appearance Overall: well nourished 11/05/2015 None Full Exam - General 1994 Psychiatric orientation/consciousness Overall: oriented to person, place and time 11/05/2015 None Full Exam - General 1994 Ears/Nose/Throat otoscopic exam Overall: external auditory canals clear 11/05/2015 None Full Exam - General 1994 Ears/Nose/Throat otoscopic exam Tympanic membrane: tympanosclerosis 11/05/2015 None Full Exam - General 1994 Respiratory auscultation Overall: breath sounds clear bilaterally 11/05/2015 None Full Exam - General 1994 Respiratory respiratory effort/rhythm Overall: no retractions 11/05/2015 None Full Exam - General 1994 Respiratory respiratory effort/rhythm Overall: normal rate 11/05/2015 None Full Exam - General 1994 Cardiovascular auscultation of heart Overall: regular rate 11/05/2015 None Full Exam - General 1994 Cardiovascular auscultation of heart Overall: normal heart sounds 11/05/2015 None Full Exam - General 1994 Cardiovascular auscultation of heart Overall: no murmurs 11/05/2015 None Full Exam - ENT Constitutional general appearance Overall: well nourished 10/05/2015 None Full Exam - ENT Constitutional general appearance Overall: well developed 10/05/2015 None Full Exam - ENT Constitutional general appearance Overall: in no acute distress 10/05/2015 None Full Exam - ENT Neurologic orientation Overall: oriented to person, place a nd time 10/05/2015 None Full Exam - ENT Integument inspection of skin Overall: no rash, lesions 10/05/2015 None Full Exam - ENT Lymphatic palpation of lymph nodes Overall: anterior cervical chain benign 10/05/2015 None Full Exam - ENT Lymphatic palpation of lymph nodes Overall: posterior cervical chain benign 10/05/2015 None Full Exam - ENT Cardiovascular auscultation of heart Overall: regular rate 10/05/2015 None Full Exam - ENT Cardiovascular auscultation of heart Overall: normal heart sounds 10/05/2015 None Full Exam - ENT Respiratory auscultation Overall: breath sounds clear bilater ally 10/05/2015 None Full Exam - ENT Respiratory inspection Overall: no retractions 10/05/2015 None Full Exam - ENT Respiratory inspection Overall: normal rate None Full Exam - ENT Face and Head palpation Overall: no sinus tenderness 10/05/2015 None Full Exam - ENT Ears/Nose/Throat otoscopic exam Overall: external auditory canals normal 10/05/2015 None Full Exam - ENT Ears/Nose/Throat otoscopic exam Overall: tympanic membranes normal 10/05/2015 None Full Exam - ENT Ears/Nose/Throat oropharynx Overall: oral mucosa clear 10/05/2015 None Full Exam - General 1994 Constitutional general appearance Development: appears stated age 0208/24/2015 None Full Exam - General 1994 Constitutional general appearance Development: well developed 08/24/2015 None Full Exam - General 1994 Constitutional general appearance Hygiene/Attention to Grooming: good hygiene 08/24/2015 None Full Exam - General 1994 Eyes conjunctiva/eyelids Overall: conjunctiva clear 08/24/2015 None Full Exam - General 1994 Eyes conjunctiva/eyelids Overall: cornea clear 08/24/2015 None Full Exam - General 1994 Eyes conjunctiva/eyelids Overall: eyelids normal 08/24/2015 None Full Exam - General 1994 Eyes pupils and irises Overall: pupils equal, round, reactive to light and accomodation 08/24/2015 None Full Exam - General 1994 Ears/Nose/Throat otoscopic exam Overall: external auditory canals clear 08/24/2015 None Full Exam - General 1994 Ears/Nose/Throat otoscopic exam Overall: tympanic membranes clear 08/24/2015 None Full Exam - General 1994 Ears/Nose/Throat lips/teeth/gingiva Overall: benign lips 08/24/2015 None Full Exam - General 1994 Ears/Nose/Throat lips/teeth/gingiva Overall: normal dentition 08/24/2015 None Full Exam - General 1994 Ears/Nose/Throat oral cavity/pharynx/larynx Overall: hypopharynx benign 08/24/2015 None Full Exam - General 1994 Ears/Nose/Throat oral cavity/pharynx/larynx Overall: no masses 08/24/2015 None Full Exam - General 1994 Ears/Nose/Throat oral cavity/pharynx/larynx Overall: oral mucosa clear 08/24/2015 None Full Exam - General 1994 Ears/Nose/Throat oral cavity/pharynx/larynx Overall: oropharyngeal mucosa clear 08/24/2015 None Full Exam - General 1994 Respiratory auscultation Overall: breath sounds clear bilaterally 08/24/2015 None Full Exam - General 1994 Respiratory respiratory effort/rhythm Overall: no retractions 08/24/2015 None Full Exam - General 1994 Respiratory respiratory effort/rhythm Overall: normal rate 08/24/2015 None Full Exam - General 1994 Cardiovascular extremities Overall: no clubbing 08/24/2015 None Full Exam - General 1994 Cardiovascular auscultation of heart Overall: normal heart sounds 08/24/2015 None Full Exam - General 1994 Cardiovascular auscultation of heart Overall: regular rate 08/24/2015 None Full Exam - General 1994 Abdomen abdominal exam Overall: no tenderness 08/24/2015 None Full Exam - General 1994 Integument inspection of skin Overall: few scattered moles, no gross abnormalities 08/24/2015 None Full Exam - General 1994 Neurologic deep tendon reflexes Overall: deep tendon reflexes intact 08/24/2015 None Full Exam - General 1994 Neurologic cranial nerves Overall: crainial nerves 2 - 12 grossly intact 08/24/2015 None Full Exam - General 1994 Psychiatric orientation/consciousness Overall: oriented to person, place and time 08/24/2015 None Full Exam - General 1994 Psychiatric mood and affect Overall: normal mood and affect 08/24/2015 None Full Exam - General 1994 Abdomen abdominal exam Overall: normal bowel sounds 08/24/2015 None Full Exam - Genitourinary/Female Con stitutional general appearance Overall: well nourished 07/14/2015 None Full Exam - Genitourinary/Female Con stitutional general appearance Overall: well developed 07/14/2015 None Full Exam - Genitourinary/Female Con stitutional general appearance Overall: in no acute distress 07/14/2015 None Full Exam - Genitourinary/Female Eyes conjunctiva/eyelids Overall: conjunctiva clear 07/14/2015 None Full Exam - Genitourinary/Female Eyes pupils and irises Overall: pupils equal, round, reactive to light and accomodation 07/14/2015 None Full Exam - Genitourinary/Female Ear s/Nose/Throat otoscopic exam Overall: external auditory canals clear 07/14/2015 None Full Exam - Genitourinary/Female Ear s/Nose/Throat otoscopic exam Overall: tympanic membranes clear 07/14/2015 None Full Exam - Genitourinary/Female Ear s/Nose/Throat oral cavity/pharynx/larynx Overall: oral mucosa clear 07/14/2015 None Full Exam - Genitourinary/Female Neck thyroid Overall: normal size 07/14/2015 None Full Exam - Genitourinary/Female Neck thyroid Overall: normal consistency 07/14/2015 None Full Exam - Genitourinary/Female Neck inspection of neck Overall: normal size 07/14/2015 None Full Exam - Genitourinary/Female Res piratory auscultation Overall: br eath sounds clear bilaterally 07/14/2015 None Full Exam - Genitourinary/Female Res piratory respiratory effort/rhythm Overall: no retractions 07/14/2015 None Full Exam - Genitourinary/Female Res piratory respiratory effort/rhythm Overall: normal rate 07/14/2015 None Full Exam - Genitourinary/Female Car diovascular auscultation of heart Overall: regular rate 07/14/2015 None Full Exam - Genitourinary/Female Car diovascular auscultation of heart Overall: normal heart sounds 07/14/2015 None Full Exam - Genitourinary/Female Car diovascular auscultation of heart Overall: no murmurs 07/14/2015 None Full Exam - Genitourinary/Female Maya st/Breast breast inspection and palpation Overall: normal chest shape 07/14/2015 None Full Exam - Genitourinary/Female Abdomen abdominal exam Overall: non tender, non distended 07/14/2015 None Full Exam - Genitourinary/Female Abdomen abdominal exam Overall: normal bowel sounds 07/14/2015 None Full Exam - Genitourinary/Female Abdomen abdominal exam Overall: no mass lesions 07/14/2015 None Full Exam - Genitourinary/Female Gen itourinary breast inspection & palpation Overall: breasts symmetric and without lesions 07/14/2015 None Full Exam - Genitourinary/Female Gen itourinary breast inspection & palpation Overall: breasts non-tender, no mass lesions 07/14/2015 None Full Exam - Genitourinary/Female Gen itourinary breast inspection & palpation Overall: no nipple discharge 07/14/2015 None Full Exam - Genitourinary/Female Gen itourinary external genitalia Overall: normal hair distribution 07/14/2015 None Full Exam - Genitourinary/Female Gen itourinary external genitalia Overall: no discharge 07/14/2015 None Full Exam - Genitourinary/Female Gen itourinary external genitalia Overall: no lesions 07/14/2015 None Full Exam - Genitourinary/Female Gen itourinary bladder Overall: no tend erness 07/14/2015 None Full Exam - Genitourinary/Female Gen itourinary bladder Overall: no mass lesions 07/14/2015 None Full Exam - Genitourinary/Female Gen itourinary vagina Overall: no disch arge 07/14/2015 None Full Exam - Genitourinary/Female Gen itourinary vagina Overall: no lesio ns 07/14/2015 None Full Exam - Genitourinary/Female Gen itourinary vagina Overall: normal t one 07/14/2015 None Full Exam - Genitourinary/Female Gen itourinary vagina Overall: normal p elvic support 07/14/2015 None Full Exam - Genitourinary/Female Gen itourinary vagina Introitus: normal appearance 07/14/2015 None Full Exam - Genitourinary/Female Gen itourinary cervix Inspection: mesfin l os 07/14/2015 None Full Exam - Genitourinary/Female Gen itourinary uterus Overall: normal s ize 07/14/2015 None Full Exam - Genitourinary/Female Gen itourinary uterus Overall: normal c ontour 07/14/2015 None Full Exam - Genitourinary/Female Gen itourinary uterus Overall: normal s hape 07/14/2015 None Full Exam - Genitourinary/Female Gen itourinary uterus Overall: normal m obility 07/14/2015 None Full Exam - Genitourinary/Female Gen itourinary uterus Overall: non tend er 07/14/2015 None Full Exam - Genitourinary/Female Gen itourinary uterus Overall: no mass 07/14/2015 None Full Exam - Genitourinary/Female Lymphatic inspection and palpation of nodes Overall: anterior cervical chain benign 07/14/2015 None Full Exam - Genitourinary/Female Lymphatic inspection and palpation of nodes Overall: posterior cervical chain benign 07/14/2015 None Full Exam - Genitourinary/Female Mus culoskeletal head and neck Overall: h ead atraumatic 07/14/2015 None Full Exam - Genitourinary/Female Integumen t inspection and palpation of skin Overall: no rash, lesions 07/14/2015 None Full Exam - Genitourinary/Female Integumen t inspection and palpation of skin Overall: no induration, no tenderness 07/14/2015 None Full Exam - Genitourinary/Female Neurologi c mood and affect Overall: normal mood 07/14/2015 None Full Exam - Genitourinary/Female Neurologi c mood and affect Overall: normal affect 07/14/2015 None Full Exam - Genitourinary/Female Psy chiatric orientation/consciousness Overall: oriented to person, place and time 07/14/2015 None History of Present Illness Symptom Name Status Resu lt Effective Date Notes well woman exam (40-65 years) Lifestyle regular seatbelt use 01/16/2018 None well woman exam (40-65 years) Lifestyle normal sleep patterns 01/16/2018 None well woman exam (40-65 years) Lifestyle normal amount of stress 01/16/2018 None well woman exam (40-65 years) Nutrit ion and Exercise balanced nutrition 01/16/2018 None well woman exam (40-65 years) Nutrit ion and Exercise moderate exercise 01/16/2018 None well woman exam (40-65 years) Obstet rical History 0 total pregnancies 01/16/2018 None well woman exam (40-65 years) Health Guidance self-breast exam 01/16/2018 None well woman exam (40-65 years) Health Guidance regular exercise 01/16/2018 None well woman exam (40-65 years) Health Guidance safety belt use 01/16/2018 None well woman exam (40-65 years) Sexual Activity is not sexually active 01/16/2018 None well woman exam (40-65 years) Pap Smear last normal performed on 11-22-2016 01/16/2018 None well woman exam (40-65 years) Lifestyle regular seatbelt use 11/22/2016 None well woman exam (40-65 years) Lifestyle normal sleep patterns 11/22/2016 None well woman exam (40-65 years) Lifestyle normal amount of stress 11/22/2016 None well woman exam (40-65 years) Obstet rical History 0 total pregnancies 11/22/2016 None well woman exam (40-65 years) Health Guidance self-breast exam 11/22/2016 None well woman exam (40-65 years) Health Guidance regular exercise 11/22/2016 None well woman exam (40-65 years) Health Guidance safety belt use 11/22/2016 None well woman exam (40-65 years) Sexual Activity is not sexually active 11/22/2016 None well woman exam (40-65 years) Pap Smear last normal performed on 07-14-2015 11/22/2016 None abdominal pain Location in the RUQ 11/22/2016 None abdominal pain Quality b urning 11/22/2016 None abdominal pain Quality i ntermittent 11/22/2016 None abdominal pain Quality d ull 11/22/2016 None abdominal pain Location in the RLQ 11/22/2016 None abdominal pain Onset and Resolution ongoing 11/22/2016 None abdominal pain Onset of Symptom approx. 1 years ago 11/22/2016 None well woman exam (40-65 years) Nutrit ion and Exercise balanced nutrition 11/22/2016 None well woman exam (40-65 years) Nutrit ion and Exercise moderate exercise 11/22/2016 None blood pressure followup Quality intermittent 01/12/2016 None blood pressure followup Onset and Re solution ongoing 01/12/2016 None blood pressure followup Onset of Symptom during adulthood 01/12/2016 None blood pressure followup Blood Pressu re Values not checking blood pressure at home 01/12/2016 None blood pressure followup Severity mild 01/12/2016 None blood pressure followup Pertinent Findings Denies dizziness 01/12/2016 None blood pressure followup Pertinent Findings Denies dyspnea 01/12/2016 None abdominal pain Location in the RUQ 01/12/2016 None abdominal pain Quality a jerzy 01/12/2016 None abdominal pain Quality i ntermittent 01/12/2016 None abdominal pain Quality i mproving 01/12/2016 None abdominal pain Quality d ull 01/12/2016 None abdominal pain Onset and Resolution ongoing 01/12/2016 None abdominal pain Onset of Symptom 5 months ago 01/12/2016 None abdominal pain Limitation on Activities does not limit activities 01/12/2016 None abdominal pain Triggers no known associated factors 01/12/2016 None blood pressure followup Quality intermittent 11/05/2015 None blood pressure followup Onset and Re solution ongoing 11/05/2015 None blood pressure followup Blood Pressu re Values not checking blood pressure at home 11/05/2015 None blood pressure followup Pertinent Findings Denies anxiety 11/05/2015 None blood pressure followup Pertinent Findings Denies dizziness 11/05/2015 None blood pressure followup Pertinent Findings Denies edema 11/05/2015 None blood pressure followup Onset of Symptom during adulthood 11/05/2015 None blood pressure followup Severity mild 11/05/2015 None cough Location in the [place] ng 10/05/2015 None cough Quality dry 10/05/2015 None cough Onset and Resolution sudden in onset 10/05/2015 None cough Onset of Symptom 3 days ago 10/05/2015 None cough Frequency of Episodes daily 10/05/2015 None cough Pertinent Findings chest discomfort 10/05/2015 None cough Pertinent Findings hoarseness 10/05/2015 None cough Pertinent Findings nasal congestion 10/05/2015 None sinus congestion Onset and Resolution sudden in onset 10/05/2015 None sinus congestion Onset of Symptom 3 days ago 10/05/2015 None sinus congestion Pertinent Findings cough 10/05/2015 None sinus congestion Location on both sides 10/05/2015 None sinus congestion Quality fullness 10/05/2015 None sinus congestion Quality pressure 10/05/2015 None sore throat Location on both sides 10/05/2015 None sore throat Quality dull 10/05/2015 None sore throat Quality scra tchy 10/05/2015 None sore throat Quality cons tant 10/05/2015 None sore throat Onset and Resolution sudden in onset 10/05/2015 None sore throat Onset of Symptom 3 days ago 10/05/2015 None gastroesophageal reflux Quality acute 08/24/2015 None gastroesophageal reflux Quality intermittent 08/24/2015 None gastroesophageal reflux Onset and Re solution ongoing 08/24/2015 None gastroesophageal reflux Onset of Symptom 1 months ago 08/24/2015 None sore throat Quality acute 08/24/2015 None sore throat Onset and Resolution sudden in onset 08/24/2015 None sore throat Onset of Symptom 4 days ago 08/24/2015 None sore throat Pertinent Findings cough 08/24/2015 None sore throat Pertinent Findings Denies fever 08/24/2015 None sinus congestion Quality acute 08/24/2015 None sinus congestion Onset and Resolution sudden in onset 08/24/2015 None sinus congestion Onset of Symptom 4 days ago 08/24/2015 None sinusitis Location in th e bilateral maxillary sinuses 08/24/2015 None sinusitis Onset and Resolution gradual in onset 08/24/2015 None sinusitis Pertinent Findings facial pain 08/24/2015 None sinusitis Pertinent Findings headache 08/24/2015 None sinusitis Pertinent Findings sinus pain 08/24/2015 None sinusitis Pertinent Findings sinus pressure 08/24/2015 None sinusitis Quality acute 08/24/2015 None sinusitis Quality pain 08/24/2015 None sinusitis Quality pressu re 08/24/2015 None sinusitis Severity moder ate 08/24/2015 None well woman exam (40-65 years) Pap Smear last normal performed on 06-30-14 07/14/2015 Last June well woman exam (40-65 years) Obstet rical History 0 total pregnancies 07/14/2015 None well woman exam (40-65 years) Lifestyle no history of physical abuse 07/14/2015 None well woman exam (40-65 years) Lifestyle regular seatbelt use 07/14/2015 None well woman exam (40-65 years) Lifestyle normal sleep patterns 07/14/2015 None well woman exam (40-65 years) Lifestyle normal amount of stress 07/14/2015 None well woman exam (40-65 years) Contro l none 07/14/2015 None well woman exam (40-65 years) Health Guidance self-breast exam 07/14/2015 None well woman exam (40-65 years) Health Guidance regular exercise 07/14/2015 None well woman exam (40-65 years) Health Guidance safety belt use 07/14/2015 None well woman exam (40-65 years) Sexual Activity is not sexually active 07/14/2015 None Instructions Comment . Well Adult Female - exam completed. Pap and breast exam completed. Pt will be called with results of her testing. She was advised to continue with yearly annual exams. Safe sex practices discussed during office visit today. Call if any abnormal gynecologic issues during the next year, otherwise, RTC yearly or prn. . HTN-blood pressure has been elevated in the past with illness-well controlled today-no change in treatment-continue low sodium diet, exericse and weight loss as discussed. Instructed patient to occasional monitor blood pressure when out at [facility] and call if readings are elevated. Patient verbalized understanding of plan. Obesity/overweight-patient is down an additional 4#-continue with diet/exercise as discussed. . RUQ abdominal pain - improving - monitor symptoms - call if not improving. FLONASE 1 SPRAY EACH NARE DAILY CALL MONDAY IF SYMPTOMS DO NOT RESOLVE OR IF ANY WORSE STOP ADVIL COLD AND SINUS MAKE A FOLLOW UP APPT IN 1 MONTH TO RECHECK BLOOD PRESSURE . Hypertension - uncontrolled-due to adv il cold and sinus-instructed patient to stop - the patient's medications have been modified as documented in the visit note. The patient has been counseled to cut back on salt in diet for a no added salt diet, low fat diet, start an exercise program with low weight bearing exercises and higher aerobic activity for heart health. The patient is to check blood pressure readings as an outpatient and either fax, call, or email the readings to the office next week for practitioner to review. The pt is to call for acute concerns. Bronchitis - acute case of bronchitis identified. Pt has been given antibiotics, breathing treatments as appropriate, and pt has been instructed to call if symptoms are not improved, or if symptoms acutely worsen. Rocephin and kenalog injections today in the office Nasal spray- use twi ce daily, one spray per nostril twice daily, after 30 minutes, rinse out nose with saline spray.. Use opposite hand per nostril to spray in the nasal steroid allergy spray. while on the antibiotic - get a PROBIOTIC - like culturelle and take it twice daily. Esophageal Reflux - the patient has been counseled against excessive intake of caffeine, spicy foods, peppermint, and cinnamon - all of which can exacerbate esophageal reflux. The patient is to take medications as prescribed and call the office if the symptoms are not improving. . Esophageal Reflux - the patient has be en counseled against excessive intake of caffeine, spicy foods, peppermint, and cinnamon - all of which can exacerbate esophageal reflux. Sinusitis - Pt has acute infection - pain in face, maxillary region, Pt informed to use decongestant, RX given to patient, sinus rinses also recommended. Call if symptoms do not show improvement. Comment . Well Adult Female - exam completed. Pap and breast exam completed. Pt will be called with results of her testing. She was advised to continue with yearly annual exams. Safe sex practices discussed during office visit today. Call if any abnormal gynecologic issues during the next year, otherwise, RTC yearly or prn. . HTN-blood pressure has been elevated in the past with illness-well controlled today-no change in treatment-continue low sodium diet, exericse and weight loss as discussed. Instructed patient to occasional monitor blood pressure when out at [facility] and call if readings are elevated. Patient verbalized understanding of plan. Obesity/overweight-patient is down an additional 4#-continue with diet/exercise as discussed. . RUQ abdominal pain - improving - monitor symptoms - call if not improving. FLONASE 1 SPRAY EACH NARE DAILY CALL MONDAY IF SYMPTOMS DO NOT RESOLVE OR IF ANY WORSE STOP ADVIL COLD AND SINUS MAKE A FOLLOW UP APPT IN 1 MONTH TO RECHECK BLOOD PRESSURE . Hypertension - uncontrolled-due to adv il cold and sinus-instructed patient to stop - the patient's medications have been modified as documented in the visit note. The patient has been counseled to cut back on salt in diet for a no added salt diet, low fat diet, start an exercise program with low weight bearing exercises and higher aerobic activity for heart health. The patient is to check blood pressure readings as an outpatient and either fax, call, or email the readings to the office next week for practitioner to review. The pt is to call for acute concerns. Bronchitis - acute case of bronchitis identified. Pt has been given antibiotics, breathing treatments as appropriate, and pt has been instructed to call if symptoms are not improved, or if symptoms acutely worsen. Rocephin and kenalog injections today in the office Nasal spray- use twi ce daily, one spray per nostril twice daily, after 30 minutes, rinse out nose with saline spray.. Use opposite hand per nostril to spray in the nasal steroid allergy spray. while on the antibiotic - get a PROBIOTIC - like culturelle and take it twice daily. Esophageal Reflux - the patient has been counseled against excessive intake of caffeine, spicy foods, peppermint, and cinnamon - all of which can exacerbate esophageal reflux. The patient is to take medications as prescribed and call the office if the symptoms are not improving. . Esophageal Reflux - the patient has be en counseled against excessive intake of caffeine, spicy foods, peppermint, and cinnamon - all of which can exacerbate esophageal reflux. Sinusitis - Pt has acute infection - pain in face, maxillary region, Pt informed to use decongestant, RX given to patient, sinus rinses also recommended. Call if symptoms do not show improvement. Additional Source Comments This clinical document has been generated using [employer] software that has been certified by the Office of the National Coordinator for Health Information Technology (ONC 15.99.04.3023.[id number]) and the National Committee for Television Tube Inspector (NCQA, as an eMeasure certified technology). FOR RECORDS PERTAINING TO PATIENTS WHO ARE OR HAVE BEEN ENROLLED IN A CHEMICAL D EPENDENCY/SUBSTANCE ABUSE PROGRAM, SOME INFORMATION MAY BE OMITTED. This clinica l summary was aggregated from multiple sources. Caution should be exercised in using it in the provision of clinical care. This summary normalizes information from multiple sources, and as a consequence, information in this document may ma terially change the coding, format and clinical context of patient data. In uriel tion, data may be omitted in some cases. CLINICAL DECISIONS SHOULD BE BASED ON T HE PRIMARY CLINICAL RECORDS. [employer] provides no warranty or guara ntee of the accuracy or completeness of information in this document.The followi ng information is based on time limited clinical information
--- OUTSIDE RECORDS SUMMARY | 2020-02-28 07:26 | XMS REPORT | CCD ---
Author Author Ildefonso Shipley Organization Tayler Shipley MD, [facility] Address [address] [place] [address] Phone Care Team Providers Care Manager Training Name Role Phone PP Unavailable CCM Unavailable Summary Purpose Interface Exchange Insurance Providers Payer name Policy type / Coverage type Covered alliance party ID Effective Begin Date Effective End Date [employer] Insuranc e [id number] Unknown Family history Mother Diagnosis Age At Onset Osteoporosis Unknown Hyperlipidemia Unknown Father Diagnosis Age At Onset Dementia Unknown Runs in the family Diagnosis Age At Onset Breast cancer Unknown Myocardial infarction Unknown Cancer Unknown Social History Social History Element Codes Description Effective Dates Employment Unknown 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 Unknown Has never used illegal drugs 015 Allergies, Adverse Reactions, Alerts Substance Reaction Codes Entered Date Inactivated Date Status * NO KNOWN DRUG JORDY RGIES Unknown 07/14/2015 No Inactive Date Active Past Medical History Illness Codes Condition Status Onset Date Resolved Date Encounter for genera l adult medical examination without abnormal findings ICD-9: V70.0 ICD-10: Z00.00 Active 07/13/2015 Unknown Essential (primary) hypertension ICD-9: 401.9 ICD-10: I10 Active 11/04/2015 Unknown Vitamin D deficiency , unspecified ICD-9: 268.9 ICD-10: E55.9 Active 01/22/2019 Unknown Encounter for screen ing mammogram for malignant neoplasm of breast ICD-9: V76.10 ICD-10: Z12.31 Active 01/14/2019 Unknown Encounter for gyneco logical examination (general) (routine) without abnormal findings ICD-9: V72.31 ICD-10: Z01.419 Active 07/13/2015 Unknown Right upper quadrant pain ICD-9: 789.01 ICD-10: R10.11 Active 01/11/2016 Unknown Other obesity due to excess calories ICD-9: 278.00 ICD-10: E66.09 Active 11/04/2015 Unknown Hypertension Unknown Active 10/05/2015 Unknow n Acute bronchitis, un specified ICD-9: 466.0 ICD-10: J20.9 Active 10/04/2015 Unknown Allergic rhinitis, u nspecified ICD-9: 477.9 ICD-10: J30.9 Active 10/04/2015 Unknown Cough ICD-9: 786.2 ICD-10: R05 Active 10/04/2015 Unknown Acute maxillary sinu sitis, unspecified ICD-9: 461.0 ICD-10: J01.00 Active 08/25/2015 Unknown Gastro-esophageal re flux disease without esophagitis ICD-9: 530.81 ICD-10: K21.9 Active 08/23/2015 Unknown Problems Condition Codes Effectiv e Dates Condition Status Encounter for genera l adult medical examination without abnormal findings ICD-9: V70.0 ICD-10: Z00.00 07/13/2015 Active Essential (primary) hypertension ICD-9: 401.9 ICD-10: I10 11/04/2015 Active Vitamin D deficiency , unspecified ICD-9: 268.9 ICD-10: E55.9 01/22/2019 Active Encounter for screen ing mammogram for malignant neoplasm of breast ICD-9: V76.10 ICD-10: Z12.31 01/14/2019 Active Encounter for gyneco logical examination (general) (routine) without abnormal findings ICD-9: V72.31 ICD-10: Z01.419 07/13/2015 Active Right upper quadrant pain ICD-9: 789.01 ICD-10: R10.11 01/11/2016 Active Other obesity due to excess calories ICD-9: 278.00 ICD-10: E66.09 11/04/2015 Active Hypertension Unknown 10/05/2015 Active Acute bronchitis, un specified ICD-9: 466.0 ICD-10: J20.9 10/04/2015 Active Allergic rhinitis, u nspecified ICD-9: 477.9 ICD-10: J30.9 10/04/2015 Active Cough ICD-9: 786.2 ICD-10: R05 10/04/2015 Active Acute maxillary sinu sitis, unspecified ICD-9: 461.0 ICD-10: J01.00 08/25/2015 Active Gastro-esophageal re flux disease without esophagitis ICD-9: 530.81 ICD-10: K21.9 08/23/2015 Active Medications Medication Codes Instruc tions Start Date Stop Date Sta tus Fill Instructions Zithromax Z-Cortez 250 mg tablet RxNorm: 071657 1 Tablet(s) PO UD 06/19/2018 06/23/2018 Inactive zpack Advil Cold and Sinus 30 mg-200 mg tablet RxNorm: 9089097 1 Tablet(s) PO BID a s needed cough 02/10/2017 04/10/2017 Inactive Advil Cold and Sinus 30 mg-200 mg tablet RxNorm: 2450065 1 Tablet(s) PO BID a s needed cough 02/06/2017 02/09/2017 Inactive Zithromax Z-Cortez 250 mg tablet RxNorm: 447054 1 Tablet(s) PO UD 05/31/2016 06/04/2016 Inactive zpack Advil Cold and Sinus 30 mg-200 mg tablet RxNorm: 4193750 1 Tablet(s) PO BID a s needed cough 02/18/2016 11/21/2016 Inactive Kenalog 40 mg/mL lisa pension for injection RxNorm: 8530323 Milliliter(s) Inj 10/05/2015 10/05/2015 In active Flonase Allergy Reli ef 50 mcg/actuation nasal spray,suspension RxNorm: 2 [place] NASAL daily 10/05/2015 12/03/2015 Inactive Zithromax Z-Cortez 250 mg tablet RxNorm: 493413 1 Tablet(s) PO UD 10/05/2015 10/09/2015 Inactive zpack ceftriaxone 500 mg s olution for injection RxNorm: 0686823 Inj 10/05/2015 10/05/2015 Inactive ceftriaxone 500 mg s olution for injection RxNorm: 9151994 Inj 08/26/2015 08/26/2015 Inactive Kenalog 40 mg/mL lisa pension for injection RxNorm: 2917525 Milliliter(s) Inj 08/26/2015 08/26/2015 In active sulfamethoxazole 800 mg-trimethoprim 160 mg tablet RxNorm: 800355 1 Tablet(s) PO BID 08/24/2015 09/02/2015 Inactive Flonase Allergy Reli ef 50 mcg/actuation nasal spray,suspension RxNorm: 1 [place] NASAL BID 08/24/2015 09/22/2015 Inactive Advil Cold & Sinus 3 0 mg-200 mg tablet RxNorm: 4147097 1 Tablet(s) PO BID a s needed cough 07/14/2015 08/12/2015 Inactive Vitamin D3 2,000 uni t tablet RxNorm: 660144 1 Tablet(s) PO daily No Start Date Active Ocuvite tablet RxNorm: 1 Tablet(s) PO daily No Start Date Active Medication Administered Medication Codes Instruc tions Start Date Status Kenalog 40 mg/mL suspension for injection RxNorm: 8040186 Milliliter 10/05/2015 No longer Active ceftriaxone 500 mg solution for injection RxNorm: 5216896 10/05/2015 No longer A ctive ceftriaxone 500 mg solution for injection RxNorm: 3988232 08/26/2015 No longer A ctive Kenalog 40 mg/mL suspension for injection RxNorm: 9642703 Milliliter 08/26/2015 No longer Active Immunizations Vaccine Codes Date Status Influenza CVX: 141 03/17 completed Tetanus, Diptheria, Pertussis CVX: 113 01/14/2010 completed Tetanus/Diptheria CVX: 113 01/14/2010 completed Assessments Condition Codes Effectiv e Dates Essential (primary) [...] without esophagitis ICD-10: K21.9 ICD-9: 530.81 08/24/2015 Reason For Visit Reason For Visit Effective Dates Notes well woman exam (40-65 years) 01/16/2018 well woman exam (40-65 years) 11/22/2016 blood pressure followup 01/12/2016 blood pressure followup 11/05/2015 cough 10/05/2015 sinus congestion 08/26/2015 gastroesophageal reflux 08/24/2015 well woman exam (40-65 years) 07/14/2015 Results Observation Observation Code Item Item Code Result Date Tsh Ord6 TSH (3rd IS) 3.17 uIU/mL 01/15/2018 Vitamin D 25 Oh [id number] VITAMIN D, 25 HYDROXY 42.67 ng/mL 01/15/2018 Comp Metabolic Etl887 NA 141 mEq/L 01/15/2018 Comp Metabolic Cjt527 K 4.4 mEq/L 01/15/2018 Comp Metabolic Kaq273 CL 107 mEq/L 01/15/2018 Comp Metabolic Aoo532 CO2 28.0 mEq/L 01/15/2018 Comp Metabolic Nna397 AN ION GAP 10 01/15/2018 Comp Metabolic Grx667 GL UCOSE 87 mg/dL 01/15/2018 Comp Metabolic Sbc639 Cr eat 0.7 mg/dL 01/15/2018 Comp Metabolic Sre996 eG FR 85 ml/min/1.73m2 01/15 Comp Metabolic Cwl695 BUN 24 mg/dL 01/15/2018 Comp Metabolic Nur068 B/ C Ratio 32.4 Ratio 01/15/2018 Comp Metabolic Def381 CA LCIUM 9.7 mg/dL 01/15/2018 Comp Metabolic Gfz457 AL K PHOS 103 U/L 01/15/2018 Comp Metabolic Hvw694 T(SGOT) 15 U/L 01/15/2018 Comp Metabolic Qvm011 AL T(SGPT) 16 U/L 01/15/2018 Comp Metabolic Ifj693 BI LI T 0.4 mg/dL 01/15/2018 Comp Metabolic Ztk205 AL BUMIN 3.9 g/dL 01/15/2018 Comp Metabolic Nxg951 TP RO 6.1 g/dL 01/15/2018 Comp Metabolic Lgg757 GL OB 2.2 g/dL 01/15/2018 Comp Metabolic Zzo084 A/ G Ratio 1.7 Ratio 01/15/2018 Comp Metabolic Kzp438 Os mo 285 mOsmo 01/15/2018 Lipid Ord30 CHOL 217 mg/dL 01/15/2018 Lipid Ord30 HDL 64.0 mg/dl 01/15/2018 Lipid Ord30 TRIG 92 mg/dL 01/15/2018 Lipid Ord30 LDL 135 mg/dL 01/15/2018 Lipid Ord30 C/HDL 3.4 Ratio 01/15/2018 Cbc With Differential Ord2 WBC 6.98 K/ul 01/15/2018 Cbc With Differential Ord2 RBC 4.82 M/ul 01/15/2018 Cbc With Differential Ord2 HGB 14.3 g/dl 01/15/2018 Cbc With Differential Ord2 HCT 44.2 % 01/15/2018 Cbc With Differential Ord2 Neut% 53.0 % 01/15/2018 Cbc With Differential Ord2 MCV 91.7 fl 01/15/2018 Cbc With Differential Ord2 Lymph% 35.5 % 01/15/2018 Cbc With Differential Ord2 MCH 29.7 pg 01/15/2018 Cbc With Differential Ord2 [place]% 8.5 % 01/15/2018 Cbc With Differential Ord2 MCHC 32.4 pg 01/15/2018 Cbc With Differential Ord2 Eos% 2.6 % 01/15/2018 Cbc With Differential Ord2 PLT 261 K/ul 01/15/2018 Cbc With Differential Ord2 Baso% 0.4 % 01/15/2018 Cbc With Differential Ord2 RDW 14.2 % 01/15/2018 Cbc With Differential Ord2 Neut ABS# 3.70 K/ul 01/15/2018 Cbc With Differential Ord2 Lymph ABS# 2.48 K/ul 01/15/2018 Cbc With Differential Ord2 [place] ABS# 0.6 K/ul 01/15/2018 Cbc With Differential Ord2 Eos ABS# 0.2 K/ul 01/15/2018 Cbc With Differential Ord2 Baso ABS# 0.0 K/ul 01/15/2018 Vitamin D 25 Oh [id number] VITAMIN D, 25 HYDROXY 44.86 ng/mL 11/16/2016 Tsh Ord6 hTSH II 2.64 uIU/mL 11/16/2016 Comp Metabolic Kpt817 NA 141 mEq/L 11/16/2016 Comp Metabolic Jqp312 K 4.3 mEq/L 11/16/2016 Comp Metabolic Tna282 CL 106 mEq/L 11/16/2016 Comp Metabolic Rmf333 CO2 26.0 mEq/L 11/16/2016 Comp Metabolic Jjv758 AN ION GAP 13 11/16/2016 Comp Metabolic Ssm230 GL UCOSE 93 mg/dL 11/16/2016 Comp Metabolic Syk014 Cr eat 0.8 mg/dL 11/16/2016 Comp Metabolic Rcl532 eG FR 79 ml/min/1.73m2 11/16 Comp Metabolic Jyk741 BUN 19 mg/dL 11/16/2016 Comp Metabolic Mbj526 B/ C Ratio 24.1 Ratio 11/16/2016 Comp Metabolic Iad152 CA LCIUM 9.8 mg/dL 11/16/2016 Comp Metabolic Kmo515 AL K PHOS 95 U/L 11/16/2016 Comp Metabolic Kkv895 T(SGOT) 15 U/L 11/16/2016 Comp Metabolic Ees158 AL T(SGPT) 12 U/L 11/16/2016 Comp Metabolic Usr525 BI LI T 0.5 mg/dL 11/16/2016 Comp Metabolic Fqy223 AL BUMIN 4.1 g/dL 11/16/2016 Comp Metabolic Myj195 TP RO 6.6 g/dL 11/16/2016 Comp Metabolic Cjg443 GL OB 2.5 g/dL 11/16/2016 Comp Metabolic Dac708 A/ G Ratio 1.6 Ratio 11/16/2016 Comp Metabolic Swe986 Os mo 283 mOsmo 11/16/2016 Lipid Ord30 CHOL 236 mg/dL 11/16/2016 Lipid Ord30 HDL 75.0 mg/dl 11/16/2016 Lipid Ord30 TRIG 104 mg/dL 11/16/2016 Lipid Ord30 LDL 140 mg/dL 11/16/2016 Lipid Ord30 C/HDL 3.1 Ratio 11/16/2016 Cbc With Differential Ord2 WBC 7.40 K/ul 11/16/2016 Cbc With Differential Ord2 RBC 4.86 M/ul 11/16/2016 Cbc With Differential Ord2 HGB 14.5 g/dl 11/16/2016 Cbc With Differential Ord2 HCT 44.3 % 11/16/2016 Cbc With Differential Ord2 Neut% 56.5 % 11/16/2016 Cbc With Differential Ord2 MCV 91.2 fl 11/16/2016 Cbc With Differential Ord2 Lymph% 32.4 % 11/16/2016 Cbc With Differential Ord2 MCH 29.8 pg 11/16/2016 Cbc With Differential Ord2 [place]% 8.4 % 11/16/2016 Cbc With Differential Ord2 MCHC 32.7 pg 11/16/2016 Cbc With Differential Ord2 Eos% 2.4 % 11/16/2016 Cbc With Differential Ord2 PLT 232 K/ul 11/16/2016 Cbc With Differential Ord2 Baso% 0.3 % 11/16/2016 Cbc With Differential Ord2 RDW 14.4 % 11/16/2016 Cbc With Differential Ord2 Neut ABS# 4.18 K/ul 11/16/2016 Cbc With Differential Ord2 Lymph ABS# 2.40 K/ul 11/16/2016 Cbc With Differential Ord2 [place] ABS# 0.6 K/ul 11/16/2016 Cbc With Differential Ord2 Eos ABS# 0.2 K/ul 11/16/2016 Cbc With Differential Ord2 Baso ABS# 0.0 K/ul 11/16/2016 Vitamin D 25 Oh [id number] VITAMIN D, 25 HYDROXY 36.91 ng/mL 07/08/2015 Tsh Ord6 hTSH II 3.58 uIU/mL 07/08/2015 Lipid Ord30 CHOL 221 mg/dL 07/08/2015 Lipid Ord30 HDL 66.0 mg/dl 07/08/2015 Lipid Ord30 TRIG 145 mg/dL 07/08/2015 Lipid Ord30 LDL 126 mg/dL 07/08/2015 Lipid Ord30 C/HDL 3.3 Ratio 07/08/2015 Cbc With Differential Ord2 WBC 7.1 K/uL 07/08/2015 Cbc With Differential Ord2 LYM 2.2 K/uL 07/08/2015 Cbc With Differential Ord2 LYM% 31.6 % 07/08/2015 Cbc With Differential Ord2 NEUT/GRAN 4.3 K/uL 07/08/2015 Cbc With Differential Ord2 NEUT/GRAN % 60.4 % 07/08/2015 Cbc With Differential Ord2 MID 0.6 K/uL 07/08/2015 Cbc With Differential Ord2 MID% 8.0 % 07/08/2015 Cbc With Differential Ord2 RBC 4.83 M/uL 07/08/2015 Cbc With Differential Ord2 HGB 14.2 g/dL 07/08/2015 Cbc With Differential Ord2 HCT 45.2 % 07/08/2015 Cbc With Differential Ord2 MCV 94 fL 07/08/2015 Cbc With Differential Ord2 MCH 29 pg 07/08/2015 Cbc With Differential Ord2 MCHC 31 g/dL 07/08/2015 Cbc With Differential Ord2 PLT 276 K/uL 07/08/2015 Cbc With Differential Ord2 RDW 14.6 % 07/08/2015 Comp Metabolic Wln779 NA 139 mEq/L 07/08/2015 Comp Metabolic Rhz000 K 4.4 mEq/L 07/08/2015 Comp Metabolic Jsv225 CL 105 mEq/L 07/08/2015 Comp Metabolic Ojm119 CO2 24.0 mEq/L 07/08/2015 Comp Metabolic Ihm897 AN ION GAP 14 07/08/2015 Comp Metabolic Dhl347 GL UCOSE 85 mg/dL 07/08/2015 Comp Metabolic Jsi307 Cr eat 0.9 mg/dL 07/08/2015 Comp Metabolic Fqw087 eG FR 69 ml/min/1.73m2 07/08 Comp Metabolic Uin452 BUN 18 mg/dL 07/08/2015 Comp Metabolic Tnd851 B/ C Ratio 20.2 Ratio 07/08/2015 Comp Metabolic Dha060 CA LCIUM 9.8 mg/dL 07/08/2015 Comp Metabolic Qsg860 AL K PHOS 103 U/L 07/08/2015 Comp Metabolic Kpi272 T(SGOT) 14 U/L 07/08/2015 Comp Metabolic Ybh541 AL T(SGPT) 14 U/L 07/08/2015 Comp Metabolic Sub109 BI LI T 0.3 mg/dL 07/08/2015 Comp Metabolic Ycz875 AL BUMIN 4.2 g/dL 07/08/2015 Comp Metabolic Hej176 TP RO 6.5 g/dL 07/08/2015 Comp Metabolic Lht734 GL OB 2.4 g/dL 07/08/2015 Comp Metabolic Gjs013 A/ G Ratio 1.8 Ratio 07/08/2015 Comp Metabolic Lko601 Os mo 279 mOsmo 07/08/2015 Review of Systems System Result Effective Dates Constitutional No recent [...] to person, place and time 07/14/2015 None Procedures Procedure Codes Date TRIAMCINOLONE ACET I [place] NOS CPT-4: J3301 10/05/2015 ROCEPHIN, PER 250 MG CPT-4: J0696 10/05/2015 THER/PROPH/DIAG INJ SC/IM CPT-4: 20329 08/26/2015 TRIAMCINOLONE ACET I [place] NOS CPT-4: J3301 08/26/2015 ROCEPHIN, PER 250 MG CPT-4: J0696 08/26/2015 Vital Signs Date Vital 01/16/2018 Blood Pressure 1: 124/82 Code: 8480-6 BMI: 30.9 Code: 61422-6 Heart Rate 1: 64 bpm Height: 5'6" SpO2: 96% Weight: 191 lbs 3 oz 11/22/2016 Blood Pressure 1: 142/88 Code: 8480-6 BMI: 30.5 Code: 62646-2 Heart Rate 1: 57 bpm Height: 5'6" SpO2: 99% Weight: 189 lbs 01/12/2016 Blood Pressure 1: 122/82 Code: 8480-6 BMI: 31.2 Code: 86427-0 Heart Rate 1: 59 bpm Height: 5'6" SpO2: 98% Weight: 193 lbs 11/05/2015 Blood Pressure 1: 142/82 Code: 8480-6 Blood Pressure 1: 130/80 Code: 8480-6 BMI: 31.2 Code: 91754-5 Heart Rate 1: 74 bpm Height: 5'6" SpO2: 97% Weight: 193 lbs 10/05/2015 Blood Pressure 1: 152/88 Code: 8480-6 BMI: 31.8 Code: 30785-9 Heart Rate 1: 96 bpm Height: 5'6" SpO2: 97% Weight: 197 lbs 08/24/2015 Blood Pressure 1: 148/82 Code: 8480-6 BMI: 32.6 Code: 08586-1 Heart Rate 1: 71 bpm Height: 5'6" SpO2: 98% Weight: 202 lbs 07/14/2015 Blood Pressure 1: 152/88 Code: 8480-6 BMI: 32.3 Code: 74552-6 Heart Rate 1: 76 bpm Height: 5'6" SpO2: 98% Weight: 200 lbs Functional Status No Functional Status data History of Present Illness Symptom Name Status [...] last normal performed on 06-30-14 07/14/2015 Last Sam well woman exam (40-65 years) Obstet rical [...] Activity is not sexually active 07/14/2015 None Advance Directives No Advance Directive data Encounters Encounter Performer Loca tion Codes Date (60210) PREV VISIT E ST AGE 40-64 Diagnosis: Encounter for gynecological examination (general) (routine) without abnormal findings[ICD10: Z01.419] [facility] CPT-4: 15518 01/16/2018 ([id number]) PREV VISIT E ST AGE 40-64 Diagnosis: Encounter for gynecological examination (general) (routine) without abnormal findings[ICD10: Z01.419] [facility] CPT-4: 06998 11/22/2016 ([id number]) 08500 EST. P ATIENT, LEVEL III Diagnosis: Right upper quadrant pain[ICD10: R10.11] Tayler Shipley MD [facility] CPT-4: 07991 01/12/2016 ([id number]) 97751 EST. P ATIENT, LEVEL III Diagnosis: Essential (primary) hypertension[ICD10: I10] Diagnosis: Other obesity due to excess calories[ICD10: E66.09] Lynnette Shipley MD, [facility] CPT-4: 37436 11/05/2015 ([id number]) 36083 EST. P ATIENT, LEVEL III Diagnosis: Cough[ICD10: R05] Diagnosis: Acute bronchitis, unspecified[ICD10: J20.9] Diagnosis: Allergic rhinitis, unspecified[ICD10: J30.9] Diagnosis: Essential (primary) hypertension[ICD10: I10] Lynnette Shipley MD, [facility] CPT-4: 78375 10/05/2015 ([id number]) 38615 EST. P ATIENT, LEVEL III Diagnosis: Acute maxillary sinusitis, unspecified[ICD10: J01.00] Diagnosis: Gastro-esophageal reflux disease without esophagitis[ICD10: K21.9] Tayler Shipley MD, [facility] CPT-4: 53339 08/24/2015 ([id number]) PREV VISIT N EW AGE 40-64 Diagnosis: Encounter for general adult medical examination without abnormal findings[ICD10: Z00.00] Tayler Shipley MD, [facility] CPT-4: 02958 07/14/2015 Plan of Care Planned Activity Notes C odes Status Date Patient Education: Patient Medication Summary Completed 01/22/2019 Care Plan: Cbc With Differential Pending 01/22/2019 Care Plan: Comp Metabolic Pending 01/22/2019 Care Plan: Tsh Pending 01/22/2019 Care Plan: Lipid Pending 01/22/2019 Care Plan: Vitamin D 25 Oh Pending 01/22/2019 Patient Education: Patient Medication Summary Completed 01/14/2019 Visit Plan: Well Adult Female - exa m completed. Pap and breast exam completed. Pt will be called with results of her testing. She was advised to continue with yearly annual exams. Safe sex practices discussed luis enrique monterio office visit today. Call if any abnormal gynecologic issues during the next year, otherwise, RTC yearly or prn. 01/16/2018 Appointment: Tayler Shipley WPtel: [address] [place], [place] [phone] Well Woman 01/16/2018 Patient Education: Patient Medication Summary Completed 01/16/2018 Visit Plan: Well Adult Female - exa m completed. Pap and breast exam completed. Pt will be called with results of her testing. She was advised to continue with yearly annual exams. Safe sex practices discussed luis enrique monteiro office visit today. Call if any abnormal gynecologic issues during the next year, otherwise, RTC yearly or prn. 11/22/2016 Appointment: Tayler Shipley WPtel: [address] [place], [place] [phone] Well Woman 11/22/2016 Patient Education: Patient Medication Summary Completed 11/22/2016 Patient Education: Obesity Completed 11/22/2016 Care Plan: PAP Pending 11/22/2016 Appointment: Tayler Shipley WPtel: [address] [place], [place] [phone] (15 min) Moderate 07/05/2016 Visit Plan: RUQ abdominal pain - im proving - monitor symptoms - call if not improving. 01/12/2016 Appointment: Tayler Shipley WPtel: [address] [place], [place] [phone] (15 min) Moderate 01/12/2016 Patient Education: Patient Medication Summary Completed 01/12/2016 Patient Education: Obesity Completed 01/12/2016 Visit Plan: HTN-blood pressure has been elevated in the past with illness-well controlled today-no change in treatment-continue low sodium diet, exericse and weight loss as discussed. Instructed patient to occasional monitor blood pressure when out at [facility] and call if readings are elevated. Patient verbalized understanding of plan. Obesity/overweight-patient is down an additional 4#-continue with diet/exercise as discussed. 11/05/2015 Appointment: (30 min) Complex 11/05/2015 Patient Education: Patient Medication Summary Completed 11/05/2015 Patient Education: Obesity Completed 11/05/2015 Care Plan: BMI Above normal followup JOSE F-MGMT EDUC & TRAIN 1 PT Pending 11/05/2015 Visit Plan: Hypertension - uncontro lled-due to advil cold and sinus-instructed patient to stop - [...] concerns. Bronchitis - acute case of bronchitis i dentified. Pt has been given antibiotics, breathing treatments as appropriate, and pt has been instructed to call if symptoms are not improved, or if symptoms acutely worsen. Rocephin and kenalog injections today in the office 10/05/2015 Appointment: (15 min) Moderate 10/05/2015 Patient Education: Patient Medication Summary Completed 10/05/2015 Patient Education: Obesity Completed 10/05/2015 Patient Education: Hypertension Completed 10/05/2015 Appointment: Nurse Visit 08/28/2015 Appointment: Nurse Visit 08/26/2015 Patient Education: Patient Medication Summary Completed 08/26/2015 Visit Plan: Esophageal Reflux - the patient has been counseled against excessive intake of caffeine, spicy foods, peppermint, and cinnamon - all of which can exacerbate esophageal reflux. Sinusitis - Pt has acute infection - pain in face, maxillary region, Pt informed to use decongestant, RX given to patient, sinus rinses also recommended. Call if symptoms do not show improvement. 08/24/2015 Patient Education: Patient Medication Summary Completed 08/24/2015 Appointment: (30 min) Complex 08/04/2015 Visit Plan: Well Adult Female - exa m completed. Pap and breast exam completed. Pt will be called with results of her testing. She was advised to continue with yearly annual exams. Safe sex practices discussed luis enrique monteiro office visit today. Call if any abnormal gynecologic issues during the next year, otherwise, RTC yearly or prn. 07/14/2015 Visit Plan: Well Adult Female - exa m completed. Pap and breast exam completed. Pt will be called with results of her testing. She was advised to continue with yearly annual exams. Safe sex practices discussed luis enrique monteiro office visit today. Call if any abnormal gynecologic issues during the next year, otherwise, RTC yearly or prn. 07/14/2015 Appointment: Tayler Shipley [facility] [phone] [id number] [place] New Patient 07/14/2015 Patient Education: Patient Medication Summary Completed 07/14/2015 Instructions Comment . Well Adult Female - [...] occasional monitor blood pressure when out at [facility] and call if readings are elevated. Patient verbalized understanding of plan. Obesity/overweight-patient is down an additional 4#-continue with diet/exercise as discussed. . RUQ abdominal pain - improving - monitor symptoms - call if not improving. . Well Adult Female - exam completed. Pap and breast exam completed. Pt will be called with results of her testing. She was advised to continue with yearly annual exams. Safe sex practices discussed during office visit today. Call if any abnormal gynecologic issues during the next year, otherwise, RTC yearly or prn. . Well Adult Female - exam completed. Pap and breast exam completed. Pt will be called with results of her testing. She was advised to continue with yearly annual exams. Safe sex practices discussed during office visit today. Call if any abnormal gynecologic issues during the next year, otherwise, RTC yearly or prn. . Well Adult Female - exam completed. Pap and breast exam completed. Pt will be called with results of her testing. She was advised to continue with yearly annual exams. Safe sex practices discussed during office visit today. Call if any abnormal gynecologic issues during the next year, otherwise, RTC yearly or prn. FLONASE 1 SPRAY EACH NARE DAILY CALL [...]
--- OUTSIDE RECORDS SUMMARY | 2020-02-28 07:27 | XMS REPORT | CCD ---
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 Name Role Phone PP Unavailable CCM Unavailable Summary Purpose Interface Exchange Insurance Providers Payer name Policy type / Coverage type Covered constitution party ID Effective Begin Date Effective End Date [place] [employer] e [id number] Unknown Family history Mother Diagnosis Age At Onset Osteoporosis Unknown Hyperlipidemia Unknown Father Diagnosis Age At Onset Dementia Unknown Runs in the family Diagnosis Age At Onset Breast cancer Unknown Myocardial infarction Unknown Cancer Unknown Social History Social History Element Codes Description Effective Dates Employment Unknown 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 Unknown Has never used illegal drugs 015 Allergies, Adverse Reactions, Alerts Substance Reaction Codes Entered Date Inactivated Date Status * NO KNOWN DRUG JORDY RGIES Unknown 07/14/2015 No Inactive Date Active Past Medical History Illness Codes Condition Status Onset Date Resolved Date Encounter for screen ing mammogram for malignant neoplasm of breast ICD-9: V76.10 ICD-10: Z12.31 Active 01/14/2019 Unknown Encounter for gyneco logical examination (general) (routine) without abnormal findings ICD-9: V72.31 ICD-10: Z01.419 Active 07/13/2015 Unknown Right upper quadrant pain ICD-9: 789.01 ICD-10: R10.11 Active 01/11/2016 Unknown Essential (primary) hypertension ICD-9: 401.9 ICD-10: I10 Active 11/04/2015 Unknown Other obesity due to excess calories [...] ICD-9: 530.81 ICD-10: K21.9 Active 08/23/2015 Unknown Encounter for genera l adult medical examination without abnormal findings ICD-9: V70.0 ICD-10: Z00.00 Active 07/13/2015 Unknown Problems Condition Codes Effectiv e Dates Condition Status Encounter for screen ing mammogram for malignant neoplasm of breast ICD-9: V76.10 ICD-10: Z12.31 01/14/2019 Active Encounter for gyneco logical examination (general) (routine) without abnormal findings ICD-9: V72.31 ICD-10: Z01.419 07/13/2015 Active Right upper quadrant pain ICD-9: 789.01 ICD-10: R10.11 01/11/2016 Active Essential (primary) hypertension ICD-9: 401.9 ICD-10: I10 11/04/2015 Active Other obesity due to excess calories [...] esophagitis ICD-9: 530.81 ICD-10: K21.9 08/23/2015 Active Encounter for genera l adult medical examination without abnormal findings ICD-9: V70.0 ICD-10: Z00.00 07/13/2015 Active Medications Medication Codes Instruc tions Start Date Stop Date Sta tus Fill Instructions Zithromax Z-Cortez 250 mg tablet RxNorm: 275471 1 Tablet(s) PO UD 06/19/2018 06/23/2018 Inactive zpack Advil Cold and Sinus 30 mg-200 mg tablet RxNorm: 6781167 1 Tablet(s) PO BID a s needed cough 02/10/2017 04/10/2017 Inactive Advil Cold and Sinus 30 mg-200 mg tablet RxNorm: 4064571 1 Tablet(s) PO BID a s needed cough 02/06/2017 02/09/2017 Inactive Zithromax Z-Cortez 250 mg tablet RxNorm: 574197 1 Tablet(s) PO UD 05/31/2016 06/04/2016 Inactive zpack Advil Cold and Sinus 30 mg-200 mg tablet RxNorm: 8885791 1 Tablet(s) PO BID a s needed cough 02/18/2016 11/21/2016 Inactive Kenalog 40 mg/mL lisa pension for injection RxNorm: 7102900 Milliliter(s) Inj 10/05/2015 10/05/2015 In active Flonase Allergy Reli ef 50 mcg/actuation nasal spray,suspension RxNorm: 2 [place] NASAL daily 10/05/2015 12/03/2015 Inactive Zithromax Z-Cortez 250 mg tablet RxNorm: 958034 1 Tablet(s) PO UD 10/05/2015 10/09/2015 Inactive zpack ceftriaxone 500 mg s olution for injection RxNorm: 7948881 Inj 10/05/2015 10/05/2015 Inactive ceftriaxone 500 mg s olution for injection RxNorm: 6582687 Inj 08/26/2015 08/26/2015 Inactive Kenalog 40 mg/mL lisa pension for injection RxNorm: 4209441 Milliliter(s) Inj 08/26/2015 08/26/2015 In active sulfamethoxazole 800 mg-trimethoprim 160 mg tablet RxNorm: 800955 1 Tablet(s) PO BID 08/24/2015 09/02/2015 Inactive Flonase Allergy Reli ef 50 mcg/actuation nasal spray,suspension RxNorm: 1 [place] NASAL BID 08/24/2015 09/22/2015 Inactive Advil Cold & Sinus 3 0 mg-200 mg tablet RxNorm: 8412481 1 Tablet(s) PO BID a s needed cough 07/14/2015 08/12/2015 Inactive Vitamin D3 2,000 uni t tablet RxNorm: 106929 1 Tablet(s) PO daily No Start Date Active Ocuvite tablet RxNorm: 1 Tablet(s) PO daily No Start Date Active Medication Administered Medication Codes Instruc tions Start Date Status Kenalog 40 mg/mL suspension for injection RxNorm: 3948996 Milliliter 10/05/2015 No longer Active ceftriaxone 500 mg solution for injection RxNorm: 1976229 10/05/2015 No longer A ctive ceftriaxone 500 mg solution for injection RxNorm: 3770566 08/26/2015 No longer A ctive Kenalog 40 mg/mL suspension for injection RxNorm: 3086718 Milliliter 08/26/2015 No longer Active Immunizations Vaccine Codes Date Status Influenza CVX: 141 03/17 completed Tetanus, Diptheria, Pertussis CVX: 113 01/14/2010 completed Tetanus/Diptheria CVX: 113 01/14/2010 completed Assessments Condition Codes Effectiv e Dates Encounter for screening mammogram for ma lignant [...] abnormal findings ICD-10: Z00.00 ICD-9: V70.0 07/14/2015 Reason For Visit Reason For Visit Effective [...] 3.17 uIU/mL 01/15/2018 Vitamin D 25 Oh Ncs2224 VITAMIN D, 25 HYDROXY 42.67 ng/mL 01/15/2018 Comp Metabolic Vbs168 NA 141 mEq/L 01/15/2018 Comp Metabolic Mkx134 K 4.4 mEq/L 01/15/2018 Comp Metabolic Icj190 CL 107 mEq/L 01/15/2018 Comp Metabolic Toj747 CO2 28.0 mEq/L 01/15/2018 Comp Metabolic Zdl630 AN ION GAP 10 01/15/2018 Comp Metabolic Czu381 GL UCOSE 87 mg/dL 01/15/2018 Comp Metabolic Fkr702 Cr eat 0.7 mg/dL 01/15/2018 Comp Metabolic Ahu785 eG FR 85 ml/min/1.73m2 01/15 Comp Metabolic Ukz405 BUN 24 mg/dL 01/15/2018 Comp Metabolic Vax343 B/ C Ratio 32.4 Ratio 01/15/2018 Comp Metabolic Fpo807 CA LCIUM 9.7 mg/dL 01/15/2018 Comp Metabolic Dct305 AL K PHOS 103 U/L 01/15/2018 Comp Metabolic Xfz934 T(SGOT) 15 U/L 01/15/2018 Comp Metabolic Nhl845 AL T(SGPT) 16 U/L 01/15/2018 Comp Metabolic Vfb644 BI LI T 0.4 mg/dL 01/15/2018 Comp Metabolic Iab030 AL BUMIN 3.9 g/dL 01/15/2018 Comp Metabolic Phz939 TP RO 6.1 g/dL 01/15/2018 Comp Metabolic Shv381 GL OB 2.2 g/dL 01/15/2018 Comp Metabolic Qmd752 A/ G Ratio 1.7 Ratio 01/15/2018 Comp Metabolic Ogh307 Os mo 285 mOsmo 01/15/2018 Lipid Ord30 [...] 29.7 pg 01/15/2018 Cbc With Differential Ord2 [place]% 8.5 % 01/15/2018 Cbc With Differential Ord2 [...] 2.48 K/ul 01/15/2018 Cbc With Differential Ord2 [place] ABS# 0.6 K/ul 01/15/2018 Cbc With Differential Ord2 Eos ABS# 0.2 K/ul 01/15/2018 Cbc With Differential Ord2 Baso ABS# 0.0 K/ul 01/15/2018 Vitamin D 25 Oh Frx2918 VITAMIN D, 25 HYDROXY 44.86 ng/mL 11/16/2016 Tsh Ord6 hTSH II 2.64 uIU/mL 11/16/2016 Comp Metabolic Zmy991 NA 141 mEq/L 11/16/2016 Comp Metabolic Cpq639 K 4.3 mEq/L 11/16/2016 Comp Metabolic Pjd341 CL 106 mEq/L 11/16/2016 Comp Metabolic Lhe179 CO2 26.0 mEq/L 11/16/2016 Comp Metabolic Yev623 AN ION GAP 13 11/16/2016 Comp Metabolic Myw151 GL UCOSE 93 mg/dL 11/16/2016 Comp Metabolic Yvz855 Cr eat 0.8 mg/dL 11/16/2016 Comp Metabolic Lgl976 eG FR 79 ml/min/1.73m2 11/16 Comp Metabolic Erv075 BUN 19 mg/dL 11/16/2016 Comp Metabolic Oqd852 B/ C Ratio 24.1 Ratio 11/16/2016 Comp Metabolic Cgw123 CA LCIUM 9.8 mg/dL 11/16/2016 Comp Metabolic Vxt351 AL K PHOS 95 U/L 11/16/2016 Comp Metabolic Log292 T(SGOT) 15 U/L 11/16/2016 Comp Metabolic Zxw756 AL T(SGPT) 12 U/L 11/16/2016 Comp Metabolic Jek920 BI LI T 0.5 mg/dL 11/16/2016 Comp Metabolic Mbt451 AL BUMIN 4.1 g/dL 11/16/2016 Comp Metabolic Qxi438 TP RO 6.6 g/dL 11/16/2016 Comp Metabolic Ymm920 GL OB 2.5 g/dL 11/16/2016 Comp Metabolic Rmo085 A/ G Ratio 1.6 Ratio 11/16/2016 Comp Metabolic Yiz525 Os mo 283 mOsmo 11/16/2016 Lipid Ord30 [...] 29.8 pg 11/16/2016 Cbc With Differential Ord2 [place]% 8.4 % 11/16/2016 Cbc With Differential Ord2 [...] 2.40 K/ul 11/16/2016 Cbc With Differential Ord2 [place] ABS# 0.6 K/ul 11/16/2016 Cbc With Differential Ord2 Eos ABS# 0.2 K/ul 11/16/2016 Cbc With Differential Ord2 Baso ABS# 0.0 K/ul 11/16/2016 Vitamin D 25 Oh Xcc5009 VITAMIN D, 25 HYDROXY 36.91 ng/mL 07/08/2015 [...] Ord2 RDW 14.6 % 07/08/2015 Comp Metabolic Tna552 NA 139 mEq/L 07/08/2015 Comp Metabolic Wnc629 K 4.4 mEq/L 07/08/2015 Comp Metabolic Mye821 CL 105 mEq/L 07/08/2015 Comp Metabolic Nbs218 CO2 24.0 mEq/L 07/08/2015 Comp Metabolic Xba496 AN ION GAP 14 07/08/2015 Comp Metabolic Eom189 GL UCOSE 85 mg/dL 07/08/2015 Comp Metabolic Nst314 Cr eat 0.9 mg/dL 07/08/2015 Comp Metabolic Lgz358 eG FR 69 ml/min/1.73m2 07/08 Comp Metabolic Tcs986 BUN 18 mg/dL 07/08/2015 Comp Metabolic Cnq371 B/ C Ratio 20.2 Ratio 07/08/2015 Comp Metabolic Qmt404 CA LCIUM 9.8 mg/dL 07/08/2015 Comp Metabolic Juf638 AL K PHOS 103 U/L 07/08/2015 Comp Metabolic Qqr620 T(SGOT) 14 U/L 07/08/2015 Comp Metabolic Ofq655 AL T(SGPT) 14 U/L 07/08/2015 Comp Metabolic Suv754 BI LI T 0.3 mg/dL 07/08/2015 Comp Metabolic Hdc852 AL BUMIN 4.2 g/dL 07/08/2015 Comp Metabolic Vxw798 TP RO 6.5 g/dL 07/08/2015 Comp Metabolic Uua456 GL OB 2.4 g/dL 07/08/2015 Comp Metabolic Irx019 A/ G Ratio 1.8 Ratio 07/08/2015 Comp Metabolic Fza100 Os mo 279 mOsmo 07/08/2015 Review of [...] CPT-4: J0696 10/05/2015 THER/PROPH/DIAG INJ SC/IM CPT-4: 87188 08/26/2015 TRIAMCINOLONE ACET I [place] NOS CPT-4: J3301 08/26/2015 ROCEPHIN, PER 250 MG CPT-4: J0696 08/26/2015 Vital Signs Date Vital 01/16/2018 Blood Pressure 1: 124/82 Code: 8480-6 BMI: 30.9 Code: 13501-7 Heart Rate 1: 64 bpm Height: 5'6" SpO2: 96% Weight: 191 lbs 3 oz 11/22/2016 Blood Pressure 1: 142/88 Code: 8480-6 BMI: 30.5 Code: 77869-5 Heart Rate 1: 57 bpm Height: 5'6" SpO2: 99% Weight: 189 lbs 01/12/2016 Blood Pressure 1: 122/82 Code: 8480-6 BMI: 31.2 Code: 55734-2 Heart Rate 1: 59 bpm Height: 5'6" SpO2: 98% Weight: 193 lbs 11/05/2015 Blood Pressure 1: 142/82 Code: 8480-6 Blood Pressure 1: 130/80 Code: 8480-6 BMI: 31.2 Code: 46896-9 Heart Rate 1: 74 bpm Height: 5'6" SpO2: 97% Weight: 193 lbs 10/05/2015 Blood Pressure 1: 152/88 Code: 8480-6 BMI: 31.8 Code: 92859-0 Heart Rate 1: 96 bpm Height: 5'6" SpO2: 97% Weight: 197 lbs 08/24/2015 Blood Pressure 1: 148/82 Code: 8480-6 BMI: 32.6 Code: 32510-4 Heart Rate 1: 71 bpm Height: 5'6" SpO2: 98% Weight: 202 lbs 07/14/2015 Blood Pressure 1: 152/88 Code: 8480-6 BMI: 32.3 Code: 95257-0 Heart Rate 1: 76 bpm Height: 5'6" [...] Encounters Encounter Performer Loca tion Codes Date ([id number]) PREV VISIT E ST AGE 40-64 Diagnosis: Encounter for gynecological examination (general) (routine) without abnormal findings[ICD10: Z01.419] Tayler Shipley MD, [facility] CPT-4: 80080 01/16/2018 ([id number]) PREV VISIT E ST AGE 40-64 Diagnosis: Encounter for gynecological examination (general) (routine) without abnormal findings[ICD10: Z01.419] Tayler Shipley MD, [facility] CPT-4: 28933 11/22/2016 ([id number]) 12551 EST. P ATIENT, LEVEL III Diagnosis: Right upper quadrant pain[ICD10: R10.11] Tayler Shipley MD, [facility] CPT-4: 99772 01/12/2016 ([id number]) 59267 EST. P ATIENT, LEVEL III Diagnosis: Essential (primary) hypertension[ICD10: I10] Diagnosis: Other obesity due to excess calories[ICD10: E66.09] Lynnette Shipley MD, [facility] CPT-4: 50254 11/05/2015 ([id number]) 43303 EST. P ATIENT, LEVEL III Diagnosis: Cough[ICD10: R05] Diagnosis: Acute bronchitis, unspecified[ICD10: J20.9] Diagnosis: Allergic rhinitis, unspecified[ICD10: J30.9] Diagnosis: Essential (primary) hypertension[ICD10: I10] Lynnette Shipley MD, [facility] CPT-4: 38460 10/05/2015 ([id number]) 51836 EST. P ATIENT, LEVEL III Diagnosis: Acute maxillary sinusitis, unspecified[ICD10: J01.00] Diagnosis: Gastro-esophageal reflux disease without esophagitis[ICD10: K21.9] Tayler Shipley MD, [facility] CPT-4: 37667 08/24/2015 ([id number]) PREV VISIT N EW AGE 40-64 Diagnosis: Encounter for general adult medical examination without abnormal findings[ICD10: Z00.00] Tayler Shipley MD, [facility] CPT-4: 16667 07/14/2015 Plan of Care Planned Activity Notes C odes Status Date Patient Education: Patient Medication Summary Completed 01/14/2019 Care Plan: SCREENINGMAMMOGRAPHYDIGITAL LOINC : 89322-5 Pending 01/14/2019 Visit Plan: Well Adult Female - exa m completed. Pap and breast exam completed. Pt will be called with results of her testing. She was advised to continue with yearly annual exams. Safe sex practices discussed luis enrique monteiro office visit today. Call if any abnormal gynecologic issues during the next year, otherwise, RTC yearly or prn. 01/16/2018 Appointment: Tayler Shipley WPtel: [address] [place], [place] [id number] Well Woman 01/16/2018 Patient Education: Patient Medication [...] or prn. 11/22/2016 Appointment: Tayler Shipley WPtel: [facility] Well Woman 11/22/2016 Patient Education: Patient Medication Summary Completed 11/22/2016 Patient Education: Obesity Completed 11/22/2016 Care Plan: PAP Pending 11/22/2016 Appointment: Tayler Shipley WPtel: [facility] (15 min) Moderate 07/05/2016 Visit Plan: RUQ abdominal pain - im proving - monitor symptoms - call if not improving. 01/12/2016 Appointment: Tayler Shipley WPtel: [facility] (15 min) Moderate 01/12/2016 Patient Education: Patient Medication Summary Completed 01/12/2016 Patient Education: Obesity Completed 01/12/2016 Visit Plan: HTN-blood pressure has been elevated in the past with illness-well controlled today-no change in treatment-continue low sodium diet, exericse and weight loss as discussed. Instructed patient to occasional monitor blood pressure when out at [facility] and call if readings are elevated. [...] or prn. 07/14/2015 Appointment: Tayler Shipley WPtel: [address] [place], [place] [id number] [place] ([place]) New Patient 07/14/2015 Patient Education: [...] occasional monitor blood pressure when out at [facility] and call if readings are elevated. [...]
--- OUTSIDE RECORDS SUMMARY | 2020-02-28 07:28 | XMS REPORT | CCD ---
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 Name Role Phone PP Unavailable CCM Unavailable Summary Purpose Interface Exchange Insurance Providers Payer name Policy type / Coverage type Covered republican ID Effective Begin Date Effective End Date Blue Cross [facility] e Cross/Blue Shield [id number] 2015 Un known Family history Mother Diagnosis Age At Onset Osteoporosis Unknown Hyperlipidemia Unknown Father Diagnosis Age At Onset Dementia Unknown Runs in the family Diagnosis Age At Onset Breast cancer Unknown Myocardial infarction Unknown Cancer Unknown Social History Social History Element Codes Description Effective Dates Employment Unknown 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 Unknown Has never used illegal drugs 015 Allergies, Adverse Reactions, Alerts Substance Reaction Codes Entered Date Inactivated Date Status * NO KNOWN DRUG JORDY RGIES Unknown 07/14/2015 No Inactive Date Active Past Medical History Illness Codes Condition Status Onset Date Resolved Date Encounter for gyneco logical examination (general) (routine) [...] Effectiv e Dates Condition Status Encounter for gyneco logical examination (general) (routine) [...] Instructions Zithromax Z-Cortez 250 mg tablet RxNorm: 798417 1 Tablet(s) PO UD 06/19/2018 06/23/2018 Active zpack Advil Cold and Sinus 30 mg-200 mg tablet RxNorm: 2894535 1 Tablet(s) PO BID a s needed cough 02/10/2017 04/10/2017 Inactive Advil Cold and Sinus 30 mg-200 mg tablet RxNorm: 7106462 1 Tablet(s) PO BID a s needed cough 02/06/2017 02/09/2017 Inactive Zithromax Z-Cortez 250 mg tablet RxNorm: 856856 1 Tablet(s) PO UD 05/31/2016 06/04/2016 Inactive zpack Advil Cold and Sinus 30 mg-200 mg tablet RxNorm: 4098358 1 Tablet(s) PO BID a s needed cough 02/18/2016 11/21/2016 Inactive Kenalog 40 mg/mL lisa pension for injection RxNorm: 9095170 Milliliter(s) Inj 10/05/2015 10/05/2015 In active Flonase Allergy Reli ef 50 mcg/actuation nasal spray,suspension RxNorm: 2 [place] NASAL daily 10/05/2015 12/03/2015 Inactive Zithromax Z-Cortez 250 mg tablet RxNorm: 017378 1 Tablet(s) PO UD 10/05/2015 10/09/2015 Inactive zpack ceftriaxone 500 mg s olution for injection RxNorm: 1317388 Inj 10/05/2015 10/05/2015 Inactive ceftriaxone 500 mg s olution for injection RxNorm: 8735201 Inj 08/26/2015 08/26/2015 Inactive Kenalog 40 mg/mL lisa pension for injection RxNorm: 5982303 Milliliter(s) Inj 08/26/2015 08/26/2015 In active sulfamethoxazole 800 mg-trimethoprim 160 mg tablet RxNorm: 549573 1 Tablet(s) PO BID 08/24/2015 09/02/2015 Inactive Flonase Allergy Reli ef 50 mcg/actuation nasal spray,suspension RxNorm: 1 [place] NASAL BID 08/24/2015 09/22/2015 Inactive Advil Cold & Sinus 3 0 mg-200 mg tablet RxNorm: 5651853 1 Tablet(s) PO BID a s needed cough 07/14/2015 08/12/2015 Inactive Vitamin D3 2,000 uni t tablet RxNorm: 712142 1 Tablet(s) PO daily No Start Date Active Ocuvite tablet RxNorm: 1 Tablet(s) PO daily No Start Date Active Medication Administered Medication Codes Instruc tions Start Date Status Kenalog 40 mg/mL suspension for injection RxNorm: 6104809 Milliliter 10/05/2015 No longer Active ceftriaxone 500 mg solution for injection RxNorm: 2051658 10/05/2015 No longer A ctive ceftriaxone 500 mg solution for injection RxNorm: 5530977 08/26/2015 No longer A ctive Kenalog 40 mg/mL suspension for injection RxNorm: 5116510 Milliliter 08/26/2015 No longer Active Immunizations Vaccine [...] 3.17 uIU/mL 01/15/2018 Vitamin D 25 Oh Rxh9430 VITAMIN D, 25 HYDROXY 42.67 ng/mL 01/15/2018 Comp Metabolic Yfs776 NA 141 mEq/L 01/15/2018 Comp Metabolic Mzv978 K 4.4 mEq/L 01/15/2018 Comp Metabolic Aba353 CL 107 mEq/L 01/15/2018 Comp Metabolic Vqg079 CO2 28.0 mEq/L 01/15/2018 Comp Metabolic Dnq052 AN ION GAP 10 01/15/2018 Comp Metabolic Enj511 GL UCOSE 87 mg/dL 01/15/2018 Comp Metabolic Ijr313 Cr eat 0.7 mg/dL 01/15/2018 Comp Metabolic Ple580 eG FR 85 ml/min/1.73m2 01/15 Comp Metabolic Kri266 BUN 24 mg/dL 01/15/2018 Comp Metabolic Jkr677 B/ C Ratio 32.4 Ratio 01/15/2018 Comp Metabolic Hzx151 CA LCIUM 9.7 mg/dL 01/15/2018 Comp Metabolic Eup599 AL K PHOS 103 U/L 01/15/2018 Comp Metabolic Xsk913 T(SGOT) 15 U/L 01/15/2018 Comp Metabolic Bzv719 AL T(SGPT) 16 U/L 01/15/2018 Comp Metabolic Ykr215 BI LI T 0.4 mg/dL 01/15/2018 Comp Metabolic Bsc833 AL BUMIN 3.9 g/dL 01/15/2018 Comp Metabolic Zmm966 TP RO 6.1 g/dL 01/15/2018 Comp Metabolic Nod716 GL OB 2.2 g/dL 01/15/2018 Comp Metabolic Sih686 A/ G Ratio 1.7 Ratio 01/15/2018 Comp Metabolic Nlv301 Os mo 285 mOsmo 01/15/2018 Lipid Ord30 CHOL 217 mg/dL 01/15/2018 Lipid Ord30 HDL 64.0 mg/dl 01/15/2018 Lipid Ord30 TRIG 92 mg/dL 01/15/2018 Lipid Ord30 LDL 135 mg/dL 01/15/2018 Lipid Ord30 C/HDL 3.4 Ratio 01/15/2018 Cbc With Differential Ord2 WBC 6.98 K/ul 01/15/2018 Cbc With Differential Ord2 RBC 4.82 M/ul 01/15/2018 Cbc With Differential Ord2 HGB 14.3 g/dl 01/15/2018 Cbc With Differential Ord2 Neut% 53.0 % 01/15/2018 Cbc With Differential Ord2 HCT 44.2 % 01/15/2018 Cbc With Differential Ord2 Lymph% 35.5 % 01/15/2018 Cbc With Differential Ord2 MCV 91.7 fl 01/15/2018 Cbc With Differential Ord2 [place]haw% 8.5 % 01/15/2018 Cbc With Differential Ord2 MCH 29.7 pg 01/15/2018 Cbc With Differential Ord2 MCHC 32.4 pg 01/15/2018 Cbc With Differential Ord2 Eos% 2.6 % 01/15/2018 Cbc With Differential Ord2 PLT 261 K/ul 01/15/2018 Cbc With Differential Ord2 Baso% 0.4 % 01/15/2018 Cbc With Differential Ord2 RDW 14.2 % 01/15/2018 Cbc With Differential Ord2 Neut ABS# 3.70 K/ul 01/15/2018 Cbc With Differential Ord2 Lymph ABS# 2.48 K/ul 01/15/2018 Cbc With Differential Ord2 [place] ABS# 0.6 K/ul 01/15/2018 Cbc With Differential Ord2 Eos ABS# 0.2 K/ul 01/15/2018 Cbc With Differential Ord2 Baso ABS# 0.0 K/ul 01/15/2018 Vitamin D 25 Oh Qsn4323 VITAMIN D, 25 HYDROXY 44.86 ng/mL 11/16/2016 Tsh Ord6 hTSH II 2.64 uIU/mL 11/16/2016 Comp Metabolic Jdj741 NA 141 mEq/L 11/16/2016 Comp Metabolic Imf821 K 4.3 mEq/L 11/16/2016 Comp Metabolic Rlo974 CL 106 mEq/L 11/16/2016 Comp Metabolic Zor844 CO2 26.0 mEq/L 11/16/2016 Comp Metabolic Arp345 AN ION GAP 13 11/16/2016 Comp Metabolic Crv563 GL UCOSE 93 mg/dL 11/16/2016 Comp Metabolic Imz578 Cr eat 0.8 mg/dL 11/16/2016 Comp Metabolic Pdx522 eG FR 79 ml/min/1.73m2 11/16 Comp Metabolic Tqp100 BUN 19 mg/dL 11/16/2016 Comp Metabolic Ctn703 B/ C Ratio 24.1 Ratio 11/16/2016 Comp Metabolic Szw952 CA LCIUM 9.8 mg/dL 11/16/2016 Comp Metabolic Tqf348 AL K PHOS 95 U/L 11/16/2016 Comp Metabolic Ngg433 T(SGOT) 15 U/L 11/16/2016 Comp Metabolic Fse932 AL T(SGPT) 12 U/L 11/16/2016 Comp Metabolic Jhu806 BI LI T 0.5 mg/dL 11/16/2016 Comp Metabolic Qrr498 AL BUMIN 4.1 g/dL 11/16/2016 Comp Metabolic Ehx682 TP RO 6.6 g/dL 11/16/2016 Comp Metabolic Otf244 GL OB 2.5 g/dL 11/16/2016 Comp Metabolic Jzo419 A/ G Ratio 1.6 Ratio 11/16/2016 Comp Metabolic Szt815 Os mo 283 mOsmo 11/16/2016 Lipid Ord30 [...] 56.5 % 11/16/2016 Cbc With Differential Ord2 Lymph% 32.4 % 11/16/2016 Cbc With Differential Ord2 MCV 91.2 fl 11/16/2016 Cbc With Differential Ord2 MCH 29.8 pg 11/16/2016 Cbc With Differential Ord2 [place]% 8.4 % 11/16/2016 Cbc With Differential Ord2 [...] 2.40 K/ul 11/16/2016 Cbc With Differential Ord2 [place] ABS# 0.6 K/ul 11/16/2016 Cbc With Differential Ord2 Eos ABS# 0.2 K/ul 11/16/2016 Cbc With Differential Ord2 Baso ABS# 0.0 K/ul 11/16/2016 Vitamin D 25 Oh Atq0889 VITAMIN D, 25 HYDROXY 36.91 ng/mL 07/08/2015 [...] Ord2 RDW 14.6 % 07/08/2015 Comp Metabolic Jpc712 NA 139 mEq/L 07/08/2015 Comp Metabolic Pjt518 K 4.4 mEq/L 07/08/2015 Comp Metabolic Ssz388 CL 105 mEq/L 07/08/2015 Comp Metabolic Ttn404 CO2 24.0 mEq/L 07/08/2015 Comp Metabolic Gfh041 AN ION GAP 14 07/08/2015 Comp Metabolic Vrd368 GL UCOSE 85 mg/dL 07/08/2015 Comp Metabolic Shg023 Cr eat 0.9 mg/dL 07/08/2015 Comp Metabolic Fsq604 eG FR 69 ml/min/1.73m2 07/08 Comp Metabolic Fvl288 BUN 18 mg/dL 07/08/2015 Comp Metabolic Pqk014 B/ C Ratio 20.2 Ratio 07/08/2015 Comp Metabolic Kci221 CA LCIUM 9.8 mg/dL 07/08/2015 Comp Metabolic Jkn227 AL K PHOS 103 U/L 07/08/2015 Comp Metabolic Ncl403 T(SGOT) 14 U/L 07/08/2015 Comp Metabolic Bjn880 AL T(SGPT) 14 U/L 07/08/2015 Comp Metabolic Aes377 BI LI T 0.3 mg/dL 07/08/2015 Comp Metabolic Bjg093 AL BUMIN 4.2 g/dL 07/08/2015 Comp Metabolic Qxj270 TP RO 6.5 g/dL 07/08/2015 Comp Metabolic Pzb658 GL OB 2.4 g/dL 07/08/2015 Comp Metabolic Frm249 A/ G Ratio 1.8 Ratio 07/08/2015 Comp Metabolic Sjk665 Os mo 279 mOsmo 07/08/2015 Review of [...] CPT-4: J0696 10/05/2015 THER/PROPH/DIAG INJ SC/IM CPT-4: 28954 08/26/2015 TRIAMCINOLONE ACET I [place] NOS CPT-4: J3301 08/26/2015 ROCEPHIN, PER 250 MG CPT-4: J0696 08/26/2015 Vital Signs Date Vital 01/16/2018 Blood Pressure 1: 124/82 Code: 8480-6 BMI: 30.9 Code: 00606-4 Heart Rate 1: 64 bpm Height: 5'6" SpO2: 96% Weight: 191 lbs 3 oz 11/22/2016 Blood Pressure 1: 142/88 Code: 8480-6 BMI: 30.5 Code: 66970-3 Heart Rate 1: 57 bpm Height: 5'6" SpO2: 99% Weight: 189 lbs 01/12/2016 Blood Pressure 1: 122/82 Code: 8480-6 BMI: 31.2 Code: 57596-6 Heart Rate 1: 59 bpm Height: 5'6" SpO2: 98% Weight: 193 lbs 11/05/2015 Blood Pressure 1: 142/82 Code: 8480-6 Blood Pressure 1: 130/80 Code: 8480-6 BMI: 31.2 Code: 72276-1 Heart Rate 1: 74 bpm Height: 5'6" SpO2: 97% Weight: 193 lbs 10/05/2015 Blood Pressure 1: 152/88 Code: 8480-6 BMI: 31.8 Code: 31731-4 Heart Rate 1: 96 bpm Height: 5'6" SpO2: 97% Weight: 197 lbs 08/24/2015 Blood Pressure 1: 148/82 Code: 8480-6 BMI: 32.6 Code: 74141-0 Heart Rate 1: 71 bpm Height: 5'6" SpO2: 98% Weight: 202 lbs 07/14/2015 Blood Pressure 1: 152/88 Code: 8480-6 BMI: 32.3 Code: 17590-8 Heart Rate 1: 76 bpm Height: 5'6" [...] Encounters Encounter Performer Loca tion Codes Date ([id number]) PREV VISIT E ST AGE 40-64 Diagnosis: Encounter for gynecological examination (general) (routine) without abnormal findings[ICD10: Z01.419] [facility] CPT-4: 31770 01/16/2018 ([id number]) PREV VISIT E ST AGE 40-64 Diagnosis: Encounter for gynecological examination (general) (routine) without abnormal findings[ICD10: Z01.419] Tayler Shipley MD, [facility] CPT-4: 95942 11/22/2016 ([id number] 53735 EST. P ATIENT, LEVEL III Diagnosis: Right upper quadrant pain[ICD10: R10.11] Tayler Shipley MD, [facility] CPT-4: 33608 01/12/2016 ([id number]) 63927 EST. P ATIENT, LEVEL III Diagnosis: Essential (primary) hypertension[ICD10: I10] Diagnosis: Other obesity due to excess calories[ICD10: E66.09] Lynnette Shipley MD, [facility] CPT-4: 39816 11/05/2015 ([id number]) 72946 EST. P ATIENT, LEVEL III Diagnosis: Cough[ICD10: R05] Diagnosis: Acute bronchitis, unspecified[ICD10: J20.9] Diagnosis: Allergic rhinitis, unspecified[ICD10: J30.9] Diagnosis: Essential (primary) hypertension[ICD10: I10] Lynnette Shipley MD, [facility] CPT-4: 03543 10/05/2015 ([id number]) 24961 EST. [facility] Diagnosis: Acute maxillary sinusitis, unspecified[ICD10: J01.00] Diagnosis: Gastro-esophageal reflux disease without esophagitis[ICD10: K21.9] Tayler Shipley MD, [facility] CPT-4: 66931 08/24/2015 ([id number]) PREV VISIT N EW AGE 40-64 Diagnosis: Encounter for general adult medical examination without abnormal findings[ICD10: Z00.00] Tayler Shipley MD, [facility] CPT-4: 65969 07/14/2015 Plan of Care Planned Activity Notes C odes Status Date Visit Plan: Well Adult Female - exa m completed. Pap and breast exam completed. Pt will be called with results of her testing. She was advised to continue with yearly annual exams. Safe sex practices discussed luis enrique monteiro office visit today. Call if any abnormal gynecologic issues during the next year, otherwise, RTC yearly or prn. 01/16/2018 Appointment: Tayler Shipley WPtel: [address] [place], [place] [phone] Well Woman 01/16/2018 Patient Education: Patient Medication [...] or prn. 11/22/2016 Appointment: Tayler Shipley WPtel: [address] [place], [place] [phone] Well Woman 11/22/2016 Patient Education: Patient Medication Summary Completed 11/22/2016 Patient Education: Obesity Completed 11/22/2016 Care Plan: PAP Pending 11/22/2016 Appointment: Tayler Shipley WPtel: [address] [place], [place] [phone] (15 min) Moderate 07/05/2016 Visit Plan: RUQ abdominal pain - im proving - monitor symptoms - call if not improving. 01/12/2016 [facility] [phone] [phone] (15 min) Moderate 01/12/2016 Patient Education: Patient Medication Summary Completed 01/12/2016 Patient Education: Obesity Completed 01/12/2016 Visit Plan: HTN-blood pressure has been elevated in the past with illness-well controlled today-no change in treatment-continue low sodium diet, exericse and weight loss as discussed. Instructed patient to occasional monitor blood pressure when out at [facility] and call if readings are elevated. Patient [...] or prn. 07/14/2015 Appointment: Tayler Shipley WPtel: [address] [place], [place] [phone] [place] (S) New Patient 07/14/2015 Patient Education: [...] occasional monitor blood pressure when out at [facility] and call if readings are elevated. Patient [...]
--- OUTSIDE RECORDS SUMMARY | 2020-02-28 07:28 | XMS REPORT | Continuity of Care Document ---
Demographics Preferred Language Unknown Marital Status Unknown [employer] Affiliation Unknown Race Unknown Ethnic Group Unknown Author Organization Unknown Address Unknown Phone Unavailable Allergies Active Description Code Type Severity Reaction Onset Reported/Identified Relationship to Patient Clinical Status Yes No Known Drug Allergies [id number] Drug Allergy Unknown N/A 02/20/2020 Medications There is no data. Problems Date Dx Coded Attending Type Code Diagnosis Diagnosed By 06/15/1257 BOUCHRA SEXTON, AYANNA Gar Ot Z01.818 ENCOUNTER FOR OTHER PREPROCEDURAL EXAMIN 06/15/1257 AYANNA SHOOK MD Ot Z12. 11 ENCOUNTER FOR SCREENING FOR MALIGNANT NE 06/15/1257 BOUCHRA SEXTON, AYANNA Gar Ot Z80. 0 FAMILY HISTORY OF MALIGNANT NEOPLASM OF 07/07/2011 Ot V12.72 07/07/2011 Ot V67.09 08/01/2014 Ot 611.72 08/01/2014 Ot V76.12 08/01/2014 Ot 793.80 08/01/2014 Ot V67.9 08/01/2014 Ot 793.80 08/01/2014 Ot V76.12 08/01/2014 Ot V76.12 08/01/2014 Ot 793.80 08/01/2014 RENÉE SEXTON, BEATRIZ Bae Ot V76.12 08/11/2014 RENÉE SEXTON, BEATRIZ Bae Ot V76.12 08/25/2014 RENÉE SEXTON, BEATRIZ Bae Ot V76.12 11/04/2014 BOUCHRA SEXTON, AYANNA Gar Ot 211. 3 11/04/2014 AYANNA SHOOK MD Ot 792. 1 11/05/2014 AYANNA SHOOK MD Ot V72. 84 08/12/2015 Ot 793.80 08/12/2015 Ot V76.12 08/12/2015 Ot V76.12 08/12/2015 Ot 793.80 08/12/2015 RENÉE SEXTON, BEATRIZ Bae Ot V76.12 08/12/2015 BEATRIZ CHINCHILLA MD Ot V76.12 08/12/2015 AYANNA SHOOK MD Ot V72. 84 08/18/2015 EPI BURGOS APRN Ot Z12.31 01/11/2018 EPI BURGOS APRN Ot Z12.31 ENCNTR SCREEN MAMMOGRAM FOR MALIGNANT NE 01/17/2019 EPI BURGOS APRN Ot Z12.31 ENCNTR SCREEN MAMMOGRAM FOR MALIGNANT NE 01/21/2020 W Z12.31 Enc ounter for screening mammogram for malignant neoplasm of breast [place] [facility]ley 01/22/2020 EPI BURGOS APRN Ot Z12.31 ENCNTR SCREEN MAMMOGRAM FOR MALIGNANT NE 01/22/2020 EPI BURGOS APRN Ot Z12.31 ENCNTR SCREEN MAMMOGRAM FOR MALIGNANT NE 01/27/2020 W R30.0 Dysuria [place] [facility]ley 01/27/2020 W Z01.419 En counter for gynecological examination (general) (routine) without abnormal findings [place] Shipley 01/28/2020 W E55.9 Shanell min D deficiency, unspecified [place] [facility]ley Procedures There is no data. Results There is no data. Encounters ACCT No. Visit Date/Time Discharge Status Pt. Type Provider Facility Loc./Unit Complaint [id number] 02/25/2020 12:37:00 Document Registration [id number] 02/20/2020 09:15:00 23:59:59 CLS Preadmit AYANNA SHOOK MD [facility] PREOP FAMILY HISTORY OF COLON CANCER [id number] 02/20/2020 05:41:00 020 12:58:00 DIS Outpatient AYANNA SHOOK MD [facility] PREOP FAMILY HISTORY OF COLON CANCER [id number] 01/20/2020 07:45:00 020 23:59:59 CLS Outpatient EPI BURGOS APRN [facility] RAD SCREENING [id number] 01/11/2019 14:11:00 019 23:59:59 CLS Outpatient EPI BURGOS APRN [facility] RAD SCREENING [id number] 01/10/2018 07:13:00 018 23:59:59 CLS Outpatient EPI BURGOS APRN [facility] RAD SCREENING [id number] 11/02/2016 13:48:00 017 23:59:59 CLS Outpatient DELL SHIPLEY MD [facility] RAD SCREENING [id number] 08/12/2015 08:43:00 016 23:59:59 CLS Outpatient EPI BURGOS APRN [facility] RAD [id number] 11/04/2014 07:51:00 015 10:25:00 DIS Outpatient BOUCHRA SEXTON, AYANNA Gar [facility] SDC [id number] 10/30/2014 06:01:00 015 23:59:59 CLS Outpatient AYANNA SHOOK MD [facility] PREOP [id number] 08/08/2014 09:51:00 015 23:59:59 CLS Outpatient BEATRIZ CHINCHILLA MD [facility] RAD [id number] 08/01/2013 08:26:00 014 23:59:59 CLS Outpatient BEATRIZ CHINCHILLA MD [facility] RAD [id number] 02/28/2020 08:30:00 P EN Preadmit AYANNA SHOOK MD [facility] ENDO FAMILY HISTORY OF COLON CANC ER [id number] 07/26/2012 07:33:00 Document Registration [id number] 07/05/2012 09:19:00 Document Registration [id number] 07/07/2011 05:42:00 Document Registration [id number] 06/21/2011 10:01:00 Document Registration [id number] 07/05/2010 13:03:00 Document Registration [id number] 12/16/2009 09:25:00 Document Registration [id number] 06/23/2009 14:31:00 Document Registration [id number] 06/18/2009 10:25:00 Document Registration [id number] 01/21/2020 14:22:28 Document Registration
[2020-02-28] MEDS ORDERED: D5 LR IV SOLUTION 1,000 ML IV ONE (07:35)
[2020-02-28] MEDS ORDERED: fentaNYL INJECTION 100 MCG/2 ML AMP IVP ONE (08:00)
[2020-02-28] MEDS ORDERED: LACTATED RINGERS 1,000 ML IV PRN (08:00)
[2020-02-28] MEDS ORDERED: LIDOCAINE JELLY 2% 6 ML SYRINGE MM PRN (08:00)
--- NOTE | 2020-02-28 08:00 | Pre-Op Note & Conscious Sedat ---
Pre-Operative Progress Note H&P Reviewed The H&P was reviewed, patient examined and no changes noted. Date H&P Reviewed: Feb 28, 2020 Time H&P Reviewed: 08:00 Conscious Sedation Pre-Proced ASA Score 1 For ASA 3 and 4: Consider anesthesia and medical clearance. Also, for patients with a history of failed moderate sedation consider anesthesia. Airway Lungs Heart ASA score ASA 1: a normal healthy patient ASA 2: a patient with a mild systemic disease (mid diabetes, controlled hypertension, obesity ASA 3: a patient with a severe systemic disease that limits activity (angina, COPD, prior Myocardial infarction) ASA 4: a patient with an incapacitating disease that is a constant threat to life (CHF, renal failure) ASA 5: a moribund patient not expected to survive 24 hrs. (ruptured aneurysm) ASA 6: a declared brain- patient whose organs are being harvested. For emergent operations, add the letter E after the classification Mallampati Classification Grade 2 Sedation Plan Analgesia, Amnesia, Plan communicated to team members, Discussed options with patient/fam, Discussed risks with patient/fam The patient is an appropriate candidate to undergo the planned procedure, sedation, and anesthesia. The patient immediately re-assessed prior to indication. AYANNA SHOOK MD Feb 28, 2020 08:00
[2020-02-28] MEDS ORDERED: fentaNYL INJECTION 100 MCG/2 ML AMP ONE ×2 (08:07)
[2020-02-28] MEDS ORDERED: MIDAZOLAM 5 MG/5 ML (VERSED) VIAL ONE (08:07)
[2020-02-28] MEDS ORDERED: LIDOCAINE JELLY 2% 6 ML SYRINGE ONE (08:07)
[2020-02-28] MEDS ORDERED: D5 LR IV SOLUTION 1,000 ML IV SCH (08:15)
[2020-02-28] MEDS: MIDAZOLAM 5 MG/5 ML (VERSED) VIAL IV PRN ×2 (08:26→08:34)
--- NOTE | 2020-02-28 16:23 | OPERATIVE REPORT ---
DATE OF SERVICE: COLONOSCOPY SUMMARY INDICATION FOR THE PROCEDURE: Family history for colon cancer. DESCRIPTION OF PROCEDURE: The patient was placed in the left lateral decubitus position. Prior to undergoing colonoscopy, a digital rectal evaluation was performed. Anal sphincter tone was normal and the perianal reflex was intact. No abnormalities were noted on digital inspection of anal canal or distal rectal vault. The colonoscope was then inserted into the rectum and under direct visualization advanced to the cecum. The cecum was identified by the identification of the ileocecal valve and cecal strap. Photographic documentation was obtained. A careful inspection was made as the colonoscope was withdrawn. The patient tolerated the procedure well. The quality of prep was good. FINDINGS: There was no evidence for internal or external hemorrhoids and the rectum was unremarkable. Several small sigmoid diverticulum were present. No evidence for diverticulitis was noted. The descending colon and transverse colon were unremarkable. Present in the mid ascending colon were two diminutive polyps, one with hyperplastic and the other one with adenomatous features. Both were biopsied and ablated and submitted for histopathology and both measuring approximately 3 mm in size. The remainder of the ascending colon and cecum was unremarkable. ASSESSMENT: Two diminutive polyps were removed from the mid ascending colon. Mild diverticular disease confined to the sigmoid colon was present without evidence for diverticulitis. As long as there are no surprises on histopathology report considering family history, I would advocate repeat surveillance colonoscopy in five years. I thank you for the referral of this pleasant lady. Job ID: [id number] DocumentID: [id number] Dictated Date: 02/28/2020 12:19:51 Early Years Teacher Date: 02/28/2020 16:22:23 Dictated By: AYANNA SHOOK MD
== END 2020-02-28 09:45 | disposition home or self-care (01) ==
LOC: ENDO 07:21
PROVIDERS: ATTEND Internal Medicine
DX: D12.2 Benign neoplasm of ascending colon (principal); K57.30 Diverticulosis of large intestine without perforation or abscess without bleeding; Z80.0 Family history of malignant neoplasm of digestive organs
CPT/HCPCS: 88305

== ENCOUNTER → 2021-01-22 | Outpatient (CLI) | payer OTHER ==
[~2021-01-22] MED LIST changes: +CHOL-34 PO; -CHOL10002 PO
--- NOTE | 2021-01-22 10:11 | Diagnostic Imaging Report ---
INDICATION: Routine screening. Comparison is made with prior mammogram from 01/20/2020 and 01/11/2019. 2-D and 3-D bilateral screening mammography was performed with CAD. Both breasts are heterogeneously dense, limiting the sensitivity of mammography. The parenchymal pattern is stable. No mass or malignant-appearing microcalcifications are seen. Axillae are unremarkable. IMPRESSION: BI-RADS Category 1 No mammographic features suspicious for malignancy are identified. ACR BI-RADS Category 1: Negative. Result letter will be mailed to the patient. Note: At least 10% of breast cancer is not imaged by mammography. Dictated by: Dictated on workstation # [id number]
== END ==
LOC: RAD 08:00
PROVIDERS: ATTEND Nurse Practitioner Family
DX: Z12.31 Encounter for screening mammogram for malignant neoplasm of breast (principal)
CPT/HCPCS: 77063; 77067

== ENCOUNTER → 2022-02-03 | Outpatient (CLI) | payer OTHER ==
[~2022-02-03] MED LIST changes: -ALPH1TAB8 PO; +BEANO150 UNI1 PO
--- NOTE | 2022-02-03 10:57 | Diagnostic Imaging Report ---
Indication: Routine screening. Comparison is made with prior mammograms from 01/22/2021 and 01/20/2020. 2-D and 3-D bilateral screening mammography was performed with CAD. Both breasts are heterogeneously dense, limiting the sensitivity of mammography. The parenchymal pattern is stable. No mass or malignant-appearing microcalcifications are seen. Axillae are unremarkable. IMPRESSION: BI-RADS Category 1 No mammographic features suspicious for malignancy are identified. ACR BI-RADS Category 1: Negative. Result letter will be mailed to the patient. Note: At least 10% of breast cancer is not imaged by mammography. Dictated by: Dictated on workstation # [id number]
== END ==
LOC: RAD 07:30
PROVIDERS: ATTEND Nurse Practitioner Family
DX: Z12.31 Encounter for screening mammogram for malignant neoplasm of breast (principal)
CPT/HCPCS: 77063; 77067

== ENCOUNTER → 2023-03-07 | Outpatient (CLI) | payer OTHER ==
--- NOTE | 2023-03-07 15:25 | Diagnostic Imaging Report ---
Indication: Routine screening. Comparison is made with prior mammograms from 02/03/2022 and 01/22/2021. 2-D and 3-D bilateral screening mammography was performed with CAD. Both breasts are heterogeneously dense, limiting the sensitivity of mammography. The parenchymal pattern is stable. No mass or malignant-appearing microcalcifications are seen. Axillae are unremarkable. IMPRESSION: BI-RADS Category 1 No mammographic features suspicious for malignancy are identified. ACR BI-RADS Category 1: Negative. Result letter will be mailed to the patient. Note: At least 10% of breast cancer is not imaged by mammography. Dictated by: Dictated on workstation # [id number]
== END ==
LOC: RAD 07:26
PROVIDERS: ATTEND Nurse Practitioner Family
DX: Z12.31 Encounter for screening mammogram for malignant neoplasm of breast (principal)
CPT/HCPCS: 77063; 77067